=== PATIENT | female | born 1935 | race Caucasian/White ===

== ENCOUNTER 2020-07-16 17:13 | Emergency (ER) | payer MEDICARE, SELFPAY ==
--- NOTE | ~2020-07-16 | XR_ITS ---
EXAMINATION: XR chest 2V DATE: 07/16/2020 17:51 INDICATION: Left chest pain. TECHNIQUE: Frontal and lateral views of the chest were obtained. COMPARISON: Chest single view 09/03/2009 FINDINGS: There is a large hiatal hernia. There are airspace opacities in the lower lung zones. There is a small right pleural effusion. No pneumothorax. The heart size is normal. IMPRESSION: 1. Airspace opacities in the lower lung zones, consistent with atelectasis versus pneumonia. 2. Small right pleural effusion. 3. Large hiatal hernia. Reviewed, dictated and finalized at location A. [employer] IMPRESSION: 1. Airspace opacities in the lower lung zones, consistent with atelectasis vers us pneumonia. 2. Small right pleural effusion. 3. Large hiatal hernia.
--- NOTE | ~2020-07-16 | XR_ITS ---
EXAMINATION: XR abdomen NG/feed tube insert DATE: 07/16/2020 21:32 INDICATION: Nasogastric tube placement. TECHNIQUE: An upright view of the abdomen was obtained. COMPARISON: Chest CT 07/16/2020 FINDINGS: The lower abdomen is excluded. There are no dilated loops of small or large bowel. The naso gastric tube is coiled in the hiatal hernia above the diaphragm. IMPRESSION: 1. Nasogastric tube coiled in the hiatal hernia above the diaphragm. Given the obstructed paraesophag eal hiatal hernia seen by CT, this is likely ideal positioning. Reviewed, dictated and finalized at location A. R MANAGER IMPRESSION: 1. Nasogastric tube coiled in the hiatal hernia above the diaphragm. Given the obstructed paraesophageal hiatal hernia seen by CT, this is likely ideal positi oning.
--- NOTE | ~2020-07-16 | CT_ITS ---
EXAMINATION: CTA chest PE protocol DATE: 07/16/2020 19:09 INDICATION: Shortness of breath. TECHNIQUE: Computed tomography angiography (CTA) of the chest was performed with 100 mL Omnipaque-350 intravenous contrast timed to evaluate the pulmonary arteries. Coronal maximum intensity projection 3D-reconstructions were created by the technologist. Automated exposure control and iterative reconst ruction technique were employed. The dose-length product was 357.59 mGy-cm. COMPARISON: Chest 2 views 07/16/2020 FINDINGS: The lungs demonstrate mild atelectasis. No pleural effusion. The heart size is normal. No p ericardial effusion. There is a large hiatal hernia. The fundus is below the diaphragm and distended by food. The portion of the stomach above the diaphragm is also distended. The esophagus is fluid-tal led and distended. The distal stomach is compressed at the hiatus by the distended portion of the sto mach. The intra-abdominal distal stomach is decompressed. There is an 8.2 cm cyst in right kidney. Th ere are diverticula of the proximal duodenum. There are cysts in the liver measuring up to 2.1 cm. Th ere is no pulmonary embolus. There is mild thoracic spondylosis and severe lumbar spondylosis. IMPRESSION: 1. No pulmonary embolus. 2. Obstructed paraesophageal hiatal hernia. Reviewed, dictated and finalized at location A. INTMENT MANAGER
[2020-07-16 17:11] VITALS: BP 198/85; PULSE 81; RESP 21; TEMP 36.4; O2SAT 97
[2020-07-16 17:15] VITALS: PULSE 91; O2SAT 100
--- NOTE | 2020-07-16 17:18 | ECG_ITS ---
Measurements Intervals [place] Rate: 75 P: 47 NM: 177 QRS: -25 QRSD: 81 T: 20 QT: 383 QTc: 429 Interpretive Statements SINUS RHYTHM WITH SINUS ARRHYTHMIA POSSIBLE LEFT ATRIAL ENLARGEMENT BASELINE ARTIFACT- I, II, AVR, AVL, AVF, V6 BORDERLINE ECG Electronically Signed On 07-16-2020 19:35:16 FORMAL SERVICE WAITER by Justo Tyler D.O.
[2020-07-16 17:19] VITALS: BP 193/87; PULSE 86; RESP 24; O2SAT 100
--- NOTE | 2020-07-16 17:35 | ED.CHESTPAIN ---
HPI - Chest Pain General Chief Complaint: Chest Pain Stated Complaint: left chest pain Time Seen by Provider: 07/16/20 17:26 Source: patient Mode of arrival: ambulatory Limitations: no limitations History of Present Illness HPI narrative: Patient is an 85-year-old female complaining of chest pain, midsternal, substernal, pressure, 8 out of 10, radiating to her left upper extremity and neck, accompanied by shortness of breath, nausea and vomiting that started this afternoon. Patient denies any abdominal pain, diaphoresis or fever. Related Data Home Medications Medication Instructions Recorded Confirmed aspirin 81 mg tablet,delayed 81 mg PO DAILY 09/12/19 02/06/20 release nitroglycerin 0.4 mg sublingual 0.4 mg SUBLINGUAL Q5M PRN 09/12/19 02/06/20 tablet Allergies Allergy/AdvReac Type Severity Reaction Status Date / Time bacitracin Allergy Intermediate RASH, Verified 07/16/20 17:17 BLISTERS neomycin Allergy Intermediate RASH, Verified 07/16/20 17:17 BLISTERS polymyxin B Allergy Intermediate RASH, Verified 07/16/20 17:17 BLISTERS Penicillins Allergy Unknown Skin Verified 07/16/20 17:17 Reaction Review of Systems Review of Systems: All systems reviewed & are unremarkable except as noted in HPI and below Constitutional: Constitutional: Denies body ache(s), Denies chills, Denies excessive sweating, Denies fatigue, Denies fever(s), Denies headache(s), Denies lethargy, Denies malaise, Denies weakness and Denies weight loss Eyes: Eyes: Denies blurry vision, Denies change in vision and Denies loss of vision ENT: Denies dizziness, Denies ear discharge, Denies headache(s), Denies lip swelling, Denies epistaxis, Denies nasal congestion, Denies neck pain, Denies throat swelling and Denies tongue swelling Cardiovascular: Cardiovascular: Denies diaphoresis, Denies rapid heart rate, Denies edema, Denies irregular heart rhythm, Denies lightheadedness and Denies palpitations Respiratory: Respiratory: Denies chest congestion, Denies cough and Denies hemoptysis Gastrointestinal: Gastrointestinal: Denies abdominal pain, Denies melena, Denies hematochezia, Denies diarrhea, Denies nausea, Denies vomiting and Denies hematemesis Musculoskeletal: Musculoskeletal: Denies abnormal gait, Denies deformity, Denies joint swelling, Denies limited range of motion, Denies neck pain and Denies numbness Neurologic: Denies Abnormal speech present, Denies abnormal gait, Denies confusion, Denies dizziness, Denies headache(s), Denies focal weakness, Denies loss of vision, Denies numbness, Denies Other visual disturbances, Denies Sensory deficit (Neuro) and Denies weakness Psychiatric: Psychiatric: Denies confusion, Denies depression, Denies auditory hallucinations, Denies homicidal ideation and Denies suicidal ideation Endocrine: Endocrine: Denies cold intolerance, Denies excessive sweating, Denies fatigue, Denies heat intolerance and Denies palpitations Hematologic/Lymphatic: Hematologic/Lymphatic: Denies easy bleeding and Denies easy bruising Allergic/Immunologic: Allergic/Immunologic: Denies lip swelling, Denies throat swelling and Denies tongue swelling [facility] Past Medical History Medical History (Updated 07/16/20 @ 20:38 by Leandro Mccoy MD) Cataract Left 02-16-2020 Right 03-04-2020 Skin cancer Family History Family History Sibling Diabetes mellitus Hypertension Family history of lung cancer Family history of cardiovascular disease Family history of malignant neoplasm of breast in first degree relative Family history of atrial fibrillation Father Diabetes mellitus Hypertension Family history of lung cancer Family history of atrial fibrillation Mother Hypertension Family history of elevated blood lipids Family history of cardiovascular disease Social History Social History Smoking stat
[2020-07-16 17:46] LABS: Basophils Percent Auto 0.7 % (0.2-1.2); Eosinophils Absolute Auto 0.1 K/mm3 (0-0.3); Eosinophils Percent Auto 1.3 % (0-4.4); Hematocrit 43.1 % (37.0-47.0); Hemoglobin 14.5 g/dL (12.0-15.0); Immature Granulocyte Absolute 0.01 K/mm3 (0.00-0.031); Immature Granulocyte Percent A 0.2 % (0-0.5); Lymphocytes Absolute Auto 1.73 K/mm3 (0.9-3.2); Lymphocytes Percent Auto 31.3 % (18.3-44.2); Mean Corpuscular HGB Conc 33.6 g/dl (32-36); Mean Corpuscular Hemoglobin 32.2 pg (26-34); Mean Corpuscular Volume 95.8 fl (80-100); Mean Platelet Volume 10.5 fl (7.4-10.4); Monocytes Absolute Auto 0.5 K/mm3 (0.1-0.6); Monocytes Percent Auto 8.2 % (2.6-8.5); Neutrophils Absolute Auto 3.2 K/mm3 (1.3-6.7); Neutrophils Percent Auto 58.3 % (45.5-73.1); Platelet Count Result 189 k/mm3 (150-375); Red Cell Distribution Width 12.2 % (11.5-14.5); White Blood Count 5.5 K/mm3 (4.5-10.0)
[2020-07-16 17:56] VITALS: BP 200/92; PULSE 84; RESP 22; O2SAT 99
[2020-07-16] MEDS: NITROGLYCERIN SL 0.4 MG TABLET SUBLINGUAL (17:56)
[2020-07-16] MEDS: LACTATED RINGERS 1,000 ML 250 ML IV CONT (17:56)
[2020-07-16] MEDS: ONDANSETRON INJ 4 MG/2 ML VIAL IV PUSH (17:56)
[2020-07-16 17:58] LABS: Anion Gap 14 mmol/L (8-16); Blood Urea Nitrogen 19 mg/dL (7-17); Calcium 10.6 mg/dL (8.4-10.2); Carbon Dioxide 24 mmol/L (22-30); Chloride 103 mmol/L (98-107); Estimated Glomerular Filt Rate 53; Glucose 123 mg/dL (65-105); Potassium 3.5 mmol/L (3.4-5.0); Sodium 141 mmol/L (137-145)
[2020-07-16 18:10] LABS: Troponin I < 0.012 ng/mL (0.000-0.034)
[2020-07-16 18:22] LABS: Prothrombin Time 13.7 Seconds (11.1-14.7)
[2020-07-16 18:23] LABS: Partial Thromboplastin Time 29.8 SECONDS (22.3-36.8)
[2020-07-16 18:25] LABS: D Dimer 2.93 ug/mL (<0.48)
[2020-07-16] MEDS: MORPHINE SULFATE (*CRX) 2 MG/ML INJ IV PUSH (19:00)
[2020-07-16 20:57] LABS: Troponin I < 0.012 ng/mL (0.000-0.034)
[2020-07-16 21:01] VITALS: BP 182/82; PULSE 91; RESP 16; O2SAT 98
[2020-07-16 22:57] VITALS: BP 148/53; PULSE 87; RESP 16; O2SAT 94
--- NOTE | 2020-07-16 22:57 | PC.NURSE ---
Spoke with [facility]. Pt accepted to [id number]
--- NOTE | 2020-07-16 23:05 | PC.NURSE ---
called [facility] to request transport. ETA 45 minute.
[2020-07-17 00:07] VITALS: BP 146/54; PULSE 92; RESP 17; TEMP 36.7; O2SAT 94
== END 2020-07-17 00:11 | disposition short-term general hospital (02) ==
PROVIDERS: Emergency Medicine; Emergency Provider Emergency Medicine; PCP Family Medicine
DX: K44.0 Diaphragmatic hernia with obstruction, without gangrene (principal); Z79.82 Long term (current) use of aspirin; Z98.42 Cataract extraction status, left eye; Z98.41 Cataract extraction status, right eye; Z85.828 Personal history of other malignant neoplasm of skin; R94.31 Abnormal electrocardiogram [ECG] [EKG]
CPT/HCPCS: 36415; 71046; 71275; 80048; 84484; 85025; 85380; 85610; 85730; 93005; 96361; 96365; 96366; 96375; 99285; A9270; J1956; J2270; J2405; J7120; Q9967

== ENCOUNTER 2020-09-17 09:36 | Outpatient (NON) | payer MEDICARE, SELFPAY ==
[2020-09-17 23:29] LABS: SARS-CoV-2 RNA PCR Positive
== END 2020-09-17 09:37 ==
LOC: ANHCOVIDDT 09:37
PROVIDERS: PCP Family Medicine; Visit Provider Family Medicine
DX: U07.1 COVID-19 (principal)
CPT/HCPCS: C9803; U0003

== ENCOUNTER 2020-12-31 13:12 | Observation (INO) | payer MEDICARE, SELFPAY ==
[2020-12-31] VITALS (17 sets, daily range): BP systolic 139–200; BP diastolic 65–107; PULSE 43–86; RESP 12–20; TEMP 36.4–36.7; O2SAT 96–100
--- NOTE | ~2020-12-31 | US_ITS ---
EXAMINATION: US carotid duplex BI DATE: 01/01/2021 10:04 INDICATION: Syncope. TECHNIQUE: Grayscale, color Doppler, and pulsed Doppler images of the cervical carotid arteries were obtained. The degree of vessel stenosis is placed in one of the following categories: normal, <50%, 5 0-69%, >=70% but less than near-occlusion, near-occlusion, or total occlusion. Note that percent sten osis relative to normal distal artery lumen diameter is indirectly measured from velocity measurement s as described by Adam, et al. Radiology 2003; [id number]. COMPARISON: None. FINDINGS: There is an arrhythmia. RIGHT: The right common carotid artery (CCA) peak systolic velocity (PSV) is 87 cm/s. The right internal car otid artery (ICA) PSV is 106 cm/s. The right ICA end-diastolic velocity (EDV) is 22 cm/s. The right I CA/CCA PSV ratio is 1.2. Grayscale and color Doppler images yield an estimate of <50% diameter reduct ion from plaque in the ICA. There is antegrade flow in the right vertebral artery. LEFT: The left CCA PSV is 86 cm/s. The left ICA PSV is 102 cm/s. The left ICA EDV is 19 cm/s. The left ICA/ CCA PSV ratio is 1.2. Grayscale and color Doppler images yield an estimate of <50% diameter reduction from plaque in the ICA. There is antegrade flow in the left vertebral artery. IMPRESSION: 1. <50% stenosis in the right internal carotid artery. 2. <50% stenosis in the left internal carotid artery. 3. Arrhythmia. Reviewed, dictated and finalized at location A.
--- NOTE | 2020-12-31 13:42 | ECG_ITS ---
Measurements Intervals [place] Rate: 51 P: 26 DC: 175 QRS: -6 QRSD: 76 T: 37 QT: 420 QTc: 390 Interpretive Statements SINUS BRADYCARDIA WITH SINUS ARRHYTHMIA LOW QRS VOLTAGE IN PRECORDIAL LEADS VOLTAGE CRITERIA FOR LVH BORDERLINE ECG Electronically Signed On 12-31-2020 14:10:49 CDT by Justo Tyler D.O.
--- NOTE | 2020-12-31 14:04 | ED.SYNCOPE ---
HPI - Syncope General Chief Complaint: Syncope Stated Complaint: syncope today, cp last week Time Seen by Provider: 12/31/20 14:04 History of Present Illness HPI narrative: 85 yo female w/ h/o atrial fibrillation presents to the ED for syncope. She reports that she was sitting on the couch when she became nauseated and fell to the side. She is unsure if she ever fully lost consciousness. SHe had a similar, but briefer episode on Sunday. The day before she was having chest pain. That resolved and has not returned. SHe has currently retuned to baseline and denies any additional symptoms. She has atrial fibrillation and hypertension. She was recently started on eliquis, but stopped after having a nosebleed. She is prescribed lisinopril and metoprolol for her blood pressure. She has not been taking the lisinopril, because she did not feel that she needed it. Related Data Home Medications Medication Instructions Recorded Confirmed aspirin 81 mg tablet,delayed 81 mg PO DAILY 09/12/19 12/31/20 release nitroglycerin 0.4 mg sublingual 0.4 mg SUBLINGUAL Q5M PRN 09/12/19 12/31/20 tablet ascorbic acid (vitamin C) 1,000 mg 1 g PO DAILY 11/12/20 12/31/20 tablet cholecalciferol (vitamin D3) 25 25 mcg PO DAILY 11/12/20 12/31/20 mcg (1,000 unit) tablet lisinopril 10 mg tablet 10 mg PO DAILY 11/16/20 12/31/20 simvastatin 10 mg PO DAILY 12/31/20 12/31/20 Allergies Allergy/AdvReac Type Severity Reaction Status Date / Time bacitracin Allergy Intermediate RASH, Verified 11/16/20 14:22 BLISTERS neomycin Allergy Intermediate RASH, Verified 11/16/20 14:22 BLISTERS polymyxin B Allergy Intermediate RASH, Verified 11/16/20 14:22 BLISTERS Penicillins Allergy Unknown Skin Verified 11/16/20 14:22 Reaction Review of Systems Review of Systems: All systems reviewed & are unremarkable except as noted in HPI and below Constitutional: Constitutional: Denies chills, Denies fever(s) and Denies weakness Eyes: Eyes: Reports no additional eye complaints ENT: Reports system reviewed and no additional complaints, except as documented Cardiovascular: Cardiovascular: Reports as per HPI Respiratory: Respiratory: Denies dyspnea Gastrointestinal: Gastrointestinal: Denies abdominal pain, Denies nausea and Denies vomiting Genitourinary: Genitourinary: Reports no additional female genitourinary complaints Musculoskeletal: Musculoskeletal: Reports no additional musculoskeletal complaints Neurologic: Denies confusion, Reports syncope and Denies headache(s) [facility] Past Medical History Medical History Atrial fibrillation Paroxysmal Cataract Left 02-16-2020 Right 03-04-2020 Chronic GERD COVID-19 Essential (primary) hypertension Mixed hyperlipidemia Skin cancer Surgical History Surgical History History of excision of lesion Mohs procedure History of Zaki fundoplication History of repair of hiatal hernia (08/06/20) Family History Family History Sibling Diabetes mellitus Hypertension Family history of lung cancer Family history of cardiovascular disease Family history of malignant neoplasm of breast in first degree relative Family history of atrial fibrillation Father Diabetes mellitus Hypertension Family history of lung cancer Family history of atrial fibrillation Mother Hypertension Family history of elevated blood lipids Family history of cardiovascular disease Social History Social History Social History: The patient has 1 daughter who is the durable power assistant prosecuting attorney for healthcare. The patient desires to be a full code but does not want to live in a vegetative state. The patient is . 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
[2020-12-31 14:05] LABS: Basophils Percent Auto 0.8 % (0.2-1.2); Eosinophils Absolute Auto 0.3 K/mm3 (0-0.3); Eosinophils Percent Auto 5.2 % (0-4.4); Hematocrit 40.9 % (37.0-47.0); Hemoglobin 13.4 g/dL (12.0-15.0); Lymphocytes Absolute Auto 1.76 K/mm3 (0.9-3.2); Lymphocytes Percent Auto 36.7 % (18.3-44.2); Mean Corpuscular HGB Conc 32.8 g/dl (32-36); Mean Corpuscular Hemoglobin 31.9 pg (26-34); Mean Corpuscular Volume 97.4 fl (80-100); Mean Platelet Volume 9.7 fl (7.4-10.4); Monocytes Absolute Auto 0.5 K/mm3 (0.1-0.6); Monocytes Percent Auto 9.8 % (2.6-8.5); Neutrophils Absolute Auto 2.3 K/mm3 (1.3-6.7); Neutrophils Percent Auto 47.5 % (45.5-73.1); Platelet Count Result 193 k/mm3 (150-375); Red Cell Distribution Width 13.4 % (11.5-14.5); White Blood Count 4.8 K/mm3 (4.5-10.0)
[2020-12-31 14:14] LABS: Anion Gap 6 mmol/L (8-16); Blood Urea Nitrogen 13 mg/dL (7-17); Calcium 9.2 mg/dL (8.4-10.2); Carbon Dioxide 27 mmol/L (22-30); Chloride 109 mmol/L (98-107); Estimated CRCL calculation 35 ml/min; Estimated Glomerular Filt Rate 60; Glucose 83 mg/dL (65-105); Potassium 4.7 mmol/L (3.4-5.0); Sodium 142 mmol/L (137-145)
[2020-12-31] MEDS: hydrALAZINE HCL 20 MG/ML VIAL 10 MG IV PUSH (14:34)
[2020-12-31] MEDS: SODIUM CHLORIDE 0.9% IV 500 ML 999 ML IV CONT (14:34)
[2020-12-31 15:01] LABS: Alanine Aminotransferase 27 U/L (4-35); Albumin Level 3.9 g/dL (3.5-5.1); Alkaline Phosphatase 55 U/L (38-126); Aspartate Amino Transferase 36 U/L (14-36); Bilirubin,Total 0.2 mg/dL (0.2-1.3)
--- NOTE | 2020-12-31 15:03 | PC.NURSE ---
Pt c/o sob after up to use the restroom. SPO2 100% on room air on arrival to room. Pt is tearful and appears to be having panic attack.
[2020-12-31 15:13] LABS: Troponin I < 0.012 ng/mL (0.000-0.034)
[2020-12-31 15:27] LABS: Add Urine Microscopic? YES; Appearance Urine Clear (Clear); Bacteria Urine Trace /hpf; Bilirubin Urine Negative (Negative); Blood Urine Negative (Negative); Color Urine Colorless (Yellow); Glucose Urine UA Negative (Negative); Ketones Urine Negative (Negative); Leukocyte Esterase Ur 1+ LEU/UL (Negative); Nitrate Urine Negative (Negative); Protein Urine Negative (Negative); RBC Urine 0-2 /hpf (0-2); Squamous Epithelial Cell Urine Few /hpf (Few); Transitional Epi Cells Urine Rare /hpf (None Seen); Urobilinogen Urine Negative mg/dL (<2.0)
[2020-12-31 15:29] LABS: Specific Grav Ur 1.003 (1.001-1.035)
[2020-12-31] MEDS: ACETAMINOPHEN 500 MG TABLET 1000 MG PO (17:40)
--- NOTE | 2020-12-31 18:16 | ADMGEN ---
This patient, Twyla Warren, was admitted to IMU Room 231-01 @1815. Patient/family oriented to hospital policies and general routines including ID bracelet, bed and alarms, visiting hours, pain management, procedures, bathroom and other care routines, personal items, smoking policy, room service/diet, and visiting hours. Information on how to activate the Rapid Response Team has been discussed. Patient/Family are encouraged to report perceived risks to care and to ask questions if they do not understand what they are told or what they should do.
--- NOTE | 2020-12-31 21:47 | PM.IMHP ---
H&P: HPI History of Present Illness Date/Time: 12/31/20 21:47 patient who has a past medical history a paroxysmal atrial fibrillation. The patient stated that she has seen Dr. Ramos in the past for manager animal. She said that she believes she was on Eliquis and only took 2 or 3 doses when she developed a nose bleed. She spoke with her manager animal who told her to just continue with her vitamin E and her aspirin. Appears that everybody in her family has hypertension and atrial fibrillation. The patient has been on metoprolol for the atrial fibrillation and only take lisinopril when her blood pressure is elevated. She does not take lisinopril every day. She stated on the 24 of December she was up during the night having chest pain. She said she also has acid reflux and sleeps with her head up. She states that she tries not to eat later than 6:00 a.m. at night. However her chest pain has been occurring during the night. Wakes up during the night. Last time she had chest pain was about a week ago and she was having difficulty sleeping so she took 2 Tylenol and she had some Tums she said she slept very little that night. But it took about 2 or 3 hours to relieve her discomfort. The patient stated that she recently had an echo and that occasionally she feels some fluttering. The patient stated that she used to run marathons up to about 6 years ago. The patient came to the emergency room [facility] because of a syncopal episode. She stated that last Sunday she had a syncopal episode where she was in the kitchen and she felt dizzy after changing out the trash bags to take the trash out. She said she was bending over and then standing up and she felt dizzy and she grabbed on to handle in the kitchen and slid herself down to the floor and a rug. She said she probably laid on the rug for about 30 minutes before getting up. She did feel some dizziness at that time. Today she woke up and she felt fine and heard a pounding in her left ear like whistling sound and she became dizzy. She said she sat on the couch and she felt like the whole room was spinning. So she told her daughter to bring her to the hospital. The patient had tested positive for COVID several months ago. She did have any chest pain today but said she felt some fluttering. The patient does live home alone. She said she recently had a Holter monitor on as well. She believes it was early this month. Her dizziness in the past and helped a lot. According to her office visit on 11/16/2020. The patient has been getting it dizzy a few times a month. I found the report from a 14 day Holter monitor it was listed as 11/22/2020. She has prior dominantly in sinus rhythm with an average heart rate of 62 beats per minute. Minimum of 49 beats per minute maximum of 153 beats per minute in conjunction with atrial fibrillation with rapid ventricular response. She has a few rare PVCs. It was noted that the patient's symptoms of chest pain corresponds with atrial fibrillation with rapid ventricular response. Last month shows pseudonormal diastolic dysfunction grade 2 with the EF of 70%. Sinus arrhythmia heart rate was in the 50s. As I was speaking to her heart rate was in the 70s. But did not lose consciousness.Hydralazine in the emergency room as well as IV fluids. She was also given Tylenol for her headache. The patient stated that she felt short of breath after getting some IV fluids so they were discontinued. On the date of service of 12/31/2020 Chief Complaint: Syncopal episode Review of Systems Review of Systems: All systems reviewed & are unremarkable except as noted in HPI and below Constitutional: Constitutional: Reports as per HPI and Reports no additional constitutional complaints Eyes: Eyes: Reports as per HPI and Reports no additional eye complaints ENT: Reports system reviewed and no additional complaints, except as documented and Reports Normal hearing present Cardiovascular: Cardiovascu
[2020-12-31] MEDS: METOPROLOL TARTRATE 25 MG TABLET PO (22:56)
[2020-12-31] MEDS: FAMOTIDINE 20 MG/2 ML VIAL IV PUSH (23:17)
[2020-12-31 23:52] LABS: Troponin I < 0.012 ng/mL (0.000-0.034)
[2021-01-01] VITALS (12 sets, daily range): BP systolic 125–157; BP diastolic 59–88; PULSE 54–94; RESP 12–16; TEMP 36.1–36.6; O2SAT 97–100
[2021-01-01] MEDS: ACETAMINOPHEN 500 MG TABLET 1000 MG PO ×2 (04:12→11:26)
[2021-01-01 04:53] LABS: Basophils Absolute Auto 0.1 K/mm3 (0.0-0.1); Basophils Percent Auto 1.1 % (0.2-1.2); Eosinophils Absolute Auto 0.2 K/mm3 (0-0.3); Eosinophils Percent Auto 4.4 % (0-4.4); Hematocrit 38.9 % (37.0-47.0); Hemoglobin 13.1 g/dL (12.0-15.0); Lymphocytes Absolute Auto 2.07 K/mm3 (0.9-3.2); Lymphocytes Percent Auto 43.9 % (18.3-44.2); Mean Corpuscular HGB Conc 33.7 g/dl (32-36); Mean Corpuscular Hemoglobin 31.3 pg (26-34); Mean Corpuscular Volume 93.1 fl (80-100); Monocytes Absolute Auto 0.5 K/mm3 (0.1-0.6); Monocytes Percent Auto 9.5 % (2.6-8.5); Neutrophils Absolute Auto 1.9 K/mm3 (1.3-6.7); Neutrophils Percent Auto 41.1 % (45.5-73.1); Platelet Count Result 193 k/mm3 (150-375); Red Blood Count 4.18 M/mm3 (4.2-5.4); Red Cell Distribution Width 13.6 % (11.5-14.5); White Blood Count 4.7 K/mm3 (4.5-10.0)
[2021-01-01 05:06] LABS: Alanine Aminotransferase 22 U/L (4-35); Albumin Level 3.5 g/dL (3.5-5.1); Alkaline Phosphatase 55 U/L (38-126); Anion Gap 6 mmol/L (8-16); Aspartate Amino Transferase 33 U/L (14-36); Bilirubin,Total 0.2 mg/dL (0.2-1.3); Blood Urea Nitrogen 12 mg/dL (7-17); Calcium 8.9 mg/dL (8.4-10.2); Carbon Dioxide 24 mmol/L (22-30); Chloride 113 mmol/L (98-107); Estimated CRCL calculation 35 ml/min; Estimated Glomerular Filt Rate 60; Glucose 92 mg/dL (65-105); Magnesium 2.3 mg/dL (1.6-2.3); Potassium 4.2 mmol/L (3.4-5.0); Sodium 143 mmol/L (137-145)
[2021-01-01 07:08] LABS: Free T4 Free Thyroxine Reflex 1.03 ng/dL (0.78-2.19)
[2021-01-01] MEDS: ASCORBIC ACID 500 MG TABLET 1000 MG PO (08:15)
[2021-01-01] MEDS: CHOLECALCIFEROL 1,000 UNITS TABLET 1000 UNITS PO (08:15)
[2021-01-01] MEDS: SIMVASTATIN 10 MG TABLET PO (08:15)
[2021-01-01] MEDS: ASPIRIN 81 MG ENTERIC TABLET PO (08:15)
[2021-01-01] MEDS: METOPROLOL TARTRATE 25 MG TABLET PO (08:16)
[2021-01-01] MEDS: MECLIZINE HCL 25 MG TABLET PO (08:16)
[2021-01-01] MEDS: FAMOTIDINE 20 MG/2 ML VIAL IV PUSH (08:16)
[2021-01-01 10:08] LABS: Total Triiodothyronine (T3) 1.07 NG/ML (0.97-1.69)
--- NOTE | 2021-01-01 10:56 | PM.CNCAR ---
Assessment and Plan Assessment and plan (1) Syncopal episodes: Code(s): R55 - Syncope and collapse Status: Acute Assessment and Plan: I am not sure if she actually had a true syncopal episode at all. The 1st episode when she laid on the floor was presyncope. The episode yesterday is also uncertain. It sounds as if she had vertigo. Certainly her markedly elevated blood pressure at the time may have been a contributing factor as well. potline monitor while in hospital is unremarkable. (2) Dizziness: Code(s): R42 - Dizziness and giddiness Status: Acute Assessment and Plan: ? Blood pressure related. Unlikely related to bradycardia (3) Essential (primary) hypertension: Code(s): I10 - Essential (primary) hypertension Status: Chronic Assessment and Plan: Above goal. Will schedule her lisinopril 10 mg daily. Continue metoprolol 25 mg p.o. b.i.d.. Continue aspirin. (4) Chest pain: Code(s): R07.9 - Chest pain, unspecified Status: Acute Assessment and Plan: Atypical. Recommend outpatient Lexiscan myocardial perfusion study (5) Atrial fibrillation: Code(s): I48.91 - Unspecified atrial fibrillation Status: Chronic Assessment and Plan: Anticoagulation is recommended but she is not interested at this point. Continue aspirin. Continue metoprolol at current dose. Probably stable for discharge later on this afternoon or at latest tomorrow History of Present Illness History of Present Illness Consult date/time: 01/01/21 10:56 Requesting physician: Adam Gerber MD Consult reason: Other (Syncope) Reason For Visit: syncope,bradycardia,atrial fibrillation Narrative: Date of service 01/01/2021 History: Patient is an 85-year-old female who has a history of paroxysmal atrial fibrillation. She sees Dr. Sanchez as an outpatient and recently saw him within the past couple of weeks. She has a history of atrial fibrillation dating back to a hernia repair in in July 2020. On day 2 postoperatively she went in atrial fibrillation. She was started on metoprolol and converted to sinus rhythm. She did not feel palpitations at that time. She was briefly started on Eliquis but due to nose bleeds [place] with medications. She does not want blood thinners at this point. She did wear an outpatient monitor which showed 6% atrial fibrillation burden. Average heart rate was 62 beats per minute during that monitor. Echocardiogram recently showed normal ejection fraction with mild LVH moderate pulmonary hypertension and moderate to severe tricuspid regurgitation. She came to the hospital because of a ?syncopal episode?. In fact though I am uncertain if she actually ever truly did pass out. Patient states that she was sitting and it felt as if her head was spinning. She leaned over to the side and then if she did pass out it was very brief at that point. She had another episode about a week ago in which she was standing and taking out the trash and felt dizzy and laid down on the floor. That episode passed over about 30 minutes. She states these 2 episodes are different from 1 another. She also has had a couple of episodes of chest pain over the past several weeks to a month. On the last Sunday she had 3-4 hours of chest pain. She took Tums and her symptoms gradually subsided. She also had some chest pressure since then the last about an hour that was very mild. The chest symptoms did not radiate into the arm back neck or jaw nor associate with nausea, diaphoresis or SOB. She otherwise denies any paroxysmal nocturnal dyspnea, orthopnea, previous history of syncope, palpitations or edema. It should be noted that her blood pressure presentation was over 200 systolic. Review of Systems Review of Systems: All systems reviewed & are unremarkable except as noted in HPI and below Constitutional: Constitutional: Denies weakness Eyes: Eyes: Denies b
[2021-01-01] MEDS: lisinopriL 10 MG TABLET PO (11:25)
--- NOTE | 2021-01-01 16:31 | PM.DS ---
DS: Admitting Diagnosis Admitting Diagnosis Admitting Diagnosis: Syncope and collapse dizziness Essential (primary) hypertension: Mixed hyperlipidemia: Chronic GERD: atrial fibrillation DS: Discharge Diagnosis Discharge Diagnosis (1) Syncopal episodes: Code(s): R55 - Syncope and collapse Status: Acute (2) Dizziness: Code(s): R42 - Dizziness and giddiness Status: Acute (3) Essential (primary) hypertension: Code(s): I10 - Essential (primary) hypertension Status: Chronic (4) Atrial fibrillation: Code(s): I48.91 - Unspecified atrial fibrillation Status: Chronic (5) Hearing loss in left ear: Code(s): H91.92 - Unspecified hearing loss, left ear Status: Acute (6) Chronic GERD: Code(s): K21.9 - Gastro-esophageal reflux disease without esophagitis Status: Chronic (7) Mixed hyperlipidemia: Code(s): E78.2 - Mixed hyperlipidemia Status: Chronic DS: Summary Hospital Course Reason for hospitalization: syncope Hospital Course: 85-year-old female admitted after reporting 2 episodes of near-syncope and syncope. Cardiology was consulted and careful review of history with patient revealed she has been having functional decline and intermittent dizziness since left inner ear disturbance began 3 months ago. Pt recently wore Holter monitor in the outpt setting without abnormal findings. Syncope considered unlikely by history.She is discharged home in stable condition after 24 hour monitoring with indication to follow-up with ENT. Dr. Gr's information was given to patient at the time of discharge. Additionally, she was advised to follow-up with her primary care physician for ongoing care of her blood pressure. Status at Discharge Functional status at discharge: uses cane/walker Overall status at discharge: patient is back to baseline Time Spent with Patient Time attestation: Total time spent providing and/or coordinating discharge services: Time spent: Greater than 30 minutes Exam Narrative: Exam Narrative: GEN: NAD, AAOx3, cooperative HEENT: NCAT, MMM, EOMI, reduced audition in L ear Neck: no JVD Heart: IRR Lungs: CTA B/l Abd: soft, NT, ND, bowel sounds normoactive Ext: moves all, no cyanosis, no clubbing, no edema DS: Data Data Completed and Pending Labs on day of discharge: Labs from last 24 hours 01/01/21 01/01/21 01/01/21 04:33 04:33 04:33 WBC RBC Hgb Hct MCV MCH MCHC RDW Plt Count MPV Immature Gran % (Auto) Neut % (Auto) Lymph % (Auto) Pender % (Auto) Eos % (Auto) Baso % (Auto) Lymph # (Auto) Pender # (Auto) Eos # (Auto) Baso # (Auto) Abs Immat Gran (auto) Absolute Neuts (auto) Absolute Nucleated RBC Nucleated RBC % Sodium Potassium Chloride Carbon Dioxide Anion Gap BUN Creatinine Estim Creat Clear Calc Estimated GFR Glucose Calcium Magnesium Total Bilirubin AST ALT Alkaline Phosphatase Troponin I Total Protein Albumin TSH (Reflex) 4.920 H Free T4 1.03 Total T3 1.07 01/01/21 01/01/21 12/31/20 04:33 04:33 23:09 WBC 4.7 RBC 4.18 L Hgb 13.1 Hct 38.9 MCV 93.1 MCH 31.3 MCHC 33.7 RDW 13.6 Plt Count 193 MPV 10.0 Immature Gran % (Auto) 0.0 Neut % (Auto) 41.1 L Lymph % (Auto) 43.9 Pender % (Auto) 9.5 H Eos % (Auto) 4.4 Baso % (Auto) 1.1 Lymph # (Auto) 2.07 Pender # (Auto) 0.5 Eos # (Auto) 0.2 Baso # (Auto) 0.1 Abs Immat Gran (auto) 0.00 Absolute Neuts (auto) 1.9 Absolute Nucleated RBC 0.0 Nucleated RBC % 0.0 Sodium 143 Potassium 4.2 Chloride 113 H Carbon Dioxide 24 Anion Gap 6 L BUN 12 Creatinine 0.90 Estim Creat Clear Calc 35 Estimated GFR 60 Glucose 92 Calcium 8.9 Magnesium 2.3 Total Bilirubin 0.2 AST 33 ALT 22 Alkaline Phosphat
== END 2021-01-01 18:08 | disposition home or self-care (01) ==
LOC: ANHED 14:29 → ANHIMU 20:40
PROVIDERS: Emergency Medicine; Nurse Practitioner; Admitting Provider Family Medicine; Emergency Provider Emergency Medicine; PCP Family Medicine; Visit Provider Hospitalist
DX: R55 Syncope and collapse (principal); I10 Essential (primary) hypertension; R07.9 Chest pain, unspecified; I48.0 Paroxysmal atrial fibrillation; K21.9 Gastro-esophageal reflux disease without esophagitis; R06.02 Shortness of breath; I65.23 Occlusion and stenosis of bilateral carotid arteries; E78.2 Mixed hyperlipidemia; Z86.16 Personal history of COVID-19; Z79.82 Long term (current) use of aspirin; Z79.899 Other long term (current) drug therapy
CPT/HCPCS: 36415; 80048; 80053; 80076; 81001; 83735; 84439; 84443; 84480; 84484; 85025; 87086; 93005; 93880; 96374; 96375; 96376; 99285; A9270; G0378; J0360; J7040

== ENCOUNTER 2022-03-29 07:54 | Outpatient (CLI) | payer MEDICARE, SELFPAY ==
[2022-03-29 11:57] LABS: Hematocrit 43.9 % (37.0-47.0); Hemoglobin 13.7 g/dL (12.0-15.0); Mean Corpuscular HGB Conc 31.2 g/dl (32-36); Mean Corpuscular Hemoglobin 31.9 pg (26-34); Mean Corpuscular Volume 102.3 fl (80-100); Mean Platelet Volume 10.6 fl (7.4-10.4); Platelet Count Result 181 k/mm3 (150-375); Red Blood Count 4.29 M/mm3 (4.2-5.4); Red Cell Distribution Width 12.5 % (11.5-14.5); White Blood Count 4.9 K/mm3 (4.5-10.0)
[2022-03-29 12:07] LABS: Alanine Aminotransferase 33 U/L (6-35); Alkaline Phosphatase 53 U/L (38-126); Anion Gap 5 mmol/L (8-16); Aspartate Amino Transferase 54 U/L (14-36); Bilirubin,Total 0.4 mg/dL (0.2-1.3); Blood Urea Nitrogen 18 mg/dL (7-17); Calcium 9.4 mg/dL (8.4-10.2); Carbon Dioxide 28 mmol/L (22-30); Chloride 108 mmol/L (98-107); Cholesterol 188 mg/dL (0-200); Estimated Glomerular Filt Rate 53; Glucose 86 mg/dL (65-110); HDL Direct 53 mg/dL; Potassium 4.6 mmol/L (3.4-5.0); Sodium 141 mmol/L (137-145); Triglycerides 92 mg/dL (<150)
[2022-03-29 12:18] LABS: LDL Cholesterol Direct 91 mg/dL
[2022-03-29 12:29] LABS: Free T4 Free Thyroxine 1.11 ng/mL (0.78-2.19)
== END 2022-03-29 07:55 | disposition home or self-care (01) ==
LOC: ANHGOSHLAB 08:01
PROVIDERS: PCP Family Medicine; Visit Provider Family Medicine
DX: E78.2 Mixed hyperlipidemia (principal); R79.89 Other specified abnormal findings of blood chemistry; I10 Essential (primary) hypertension
CPT/HCPCS: 36415; 80053; 80061; 84439; 84443; 85027

== ENCOUNTER 2022-05-23 08:35 | Outpatient (CLI) | payer MEDICARE, SELFPAY ==
[2022-05-23 19:08] LABS: Alanine Aminotransferase 37 U/L (6-35); Albumin Level 4.3 g/dL (3.5-5.1); Alkaline Phosphatase 65 U/L (38-126); Aspartate Amino Transferase 55 U/L (14-36); Bilirubin,Total 0.5 mg/dL (0.2-1.3)
== END 2022-05-23 08:36 | disposition home or self-care (01) ==
LOC: ANHGOSHLAB 08:38
PROVIDERS: PCP Family Medicine; Visit Provider Physician Assistant
DX: R74.8 Abnormal levels of other serum enzymes (principal)
CPT/HCPCS: 36415; 80076

== ENCOUNTER 2022-05-24 09:39 | Outpatient (CLI) | payer MEDICARE, SELFPAY ==
[2022-05-24 19:45] LABS: Hepatitis B Surface Antigen Negative (Negative)
[2022-05-24 19:50] LABS: HAV RESULT Negative (Negative); Hepatitis B Core IgM Result Negative (Negative)
[2022-05-24 20:02] LABS: Hepatitis C Virus Antibody Negative (Negative)
== END 2022-05-24 09:40 | disposition home or self-care (01) ==
PROVIDERS: PCP Family Medicine; Visit Provider Physician Assistant
DX: R74.8 Abnormal levels of other serum enzymes (principal); R74.01 Elevation of levels of liver transaminase levels
CPT/HCPCS: 36415; 80074

== ENCOUNTER → 2022-05-25 08:01 | Outpatient (CLI) | payer MEDICARE, SELFPAY ==
--- NOTE | ~2022-05-25 | US_ITS ---
EXAMINATION: US abdomen limited DATE: 05/25/2022 08:32 INDICATION: Elevated liver enzymes TECHNIQUE: Multiple grayscale and Doppler ultrasound images of the abdomen were obtained. COMPARISON: None available FINDINGS: Bowel gas obscures visualization of the pancreas. The visualized portions of the pancreas a re unremarkable. Cysts of the liver measure up to 1.7 cm. The liver is otherwise normal with normal e chogenicity and echotexture. No surface nodularity. Normal hepatopetal flow in the main portal vein. The gallbladder is normal with no abnormal wall thickening, pericholecystic fluid or stones. The norm al common bile duct measures 6 mm. There was no sonographic Robbins sign. Incidental note is made of a 7.5 cm cyst of the right kidney. IMPRESSION: 1. No sonographic correlate for the patient's symptoms. Reviewed, dictated and finalized at location B.
== END ==
PROVIDERS: PCP Family Medicine; Visit Provider Family Medicine
DX: R74.8 Abnormal levels of other serum enzymes (principal)
CPT/HCPCS: 76705

== ENCOUNTER 2022-09-13 08:33 | Outpatient (CLI) | payer MEDICARE, SELFPAY ==
[2022-09-13 18:25] LABS: Alanine Aminotransferase 28 U/L (6-35); Albumin Level 4.2 g/dL (3.5-5.1); Alkaline Phosphatase 63 U/L (38-126); Aspartate Amino Transferase 45 U/L (14-36); Bilirubin,Total 0.7 mg/dL (0.2-1.3)
== END 2022-09-13 08:34 | disposition home or self-care (01) ==
LOC: ANHGOSHLAB 08:35
PROVIDERS: PCP Family Medicine; Visit Provider Physician Assistant
DX: R74.8 Abnormal levels of other serum enzymes (principal)
CPT/HCPCS: 36415; 80076

== ENCOUNTER 2023-01-18 08:32 | Outpatient (CLI) | payer MEDICARE, SELFPAY ==
[2023-01-18 19:28] LABS: Free T4 Free Thyroxine 1.15 ng/mL (0.78-2.19)
[2023-01-18 19:39] LABS: Alanine Aminotransferase 25 U/L (6-35); Alkaline Phosphatase 56 U/L (38-126); Anion Gap 5 mmol/L (8-16); Aspartate Amino Transferase 49 U/L (14-36); Bilirubin,Total 0.6 mg/dL (0.2-1.3); Blood Urea Nitrogen 19 mg/dL (7-17); Calcium 9.1 mg/dL (8.4-10.2); Carbon Dioxide 28 mmol/L (22-30); Chloride 105 mmol/L (98-107); Cholesterol 158 mg/dL (0-200); Estimated Glomerular Filt Rate > 60; Glucose 81 mg/dL (65-110); HDL Direct 45 mg/dL; Potassium 4.4 mmol/L (3.4-5.0); Sodium 138 mmol/L (137-145); Triglycerides 114 mg/dL (<150)
[2023-01-18 19:50] LABS: LDL Cholesterol Direct 79 mg/dL
== END 2023-01-18 08:33 | disposition home or self-care (01) ==
LOC: ANHGOSHLAB 08:33
PROVIDERS: PCP Family Medicine; Visit Provider Family Medicine
DX: E66.3 Overweight (principal); E78.2 Mixed hyperlipidemia; R79.89 Other specified abnormal findings of blood chemistry; I12.9 Hypertensive chronic kidney disease with stage 1 through stage 4 chronic kidney disease, or unspecified chronic kidney disease; N18.30 Chronic kidney disease, stage 3 unspecified
CPT/HCPCS: 36415; 80053; 80061; 84439; 84443

== ENCOUNTER 2023-02-14 08:49 | Outpatient (CLI) | payer MEDICARE, SELFPAY ==
[2023-02-14 21:41] LABS: Alanine Aminotransferase 28 U/L (6-35); Albumin Level 3.8 g/dL (3.5-5.1); Alkaline Phosphatase 50 U/L (38-126); Anion Gap 3 mmol/L (8-16); Aspartate Amino Transferase 46 U/L (14-36); Bilirubin,Total 0.4 mg/dL (0.2-1.3); Blood Urea Nitrogen 23 mg/dL (7-17); Carbon Dioxide 30 mmol/L (22-30); Chloride 106 mmol/L (98-107); Estimated Glomerular Filt Rate 60; Glucose 60 mg/dL (65-110); Potassium 4.4 mmol/L (3.4-5.0); Sodium 139 mmol/L (137-145)
== END 2023-02-14 08:50 | disposition home or self-care (01) ==
LOC: ANHGOSHLAB 08:51
PROVIDERS: PCP Family Medicine; Visit Provider Internal Medicine Cardiovascular Disease
DX: I49.3 Ventricular premature depolarization (principal)
CPT/HCPCS: 36415; 80053

== ENCOUNTER 2023-05-08 08:10 | Outpatient (CLI) | payer MEDICARE, SELFPAY ==
[2023-05-08 15:16] LABS: Hematocrit 44.6 % (37.0-47.0); Hemoglobin 14.3 g/dL (12.0-15.0); Mean Corpuscular HGB Conc 32.1 g/dl (32-36); Mean Corpuscular Hemoglobin 31.8 pg (26-34); Mean Corpuscular Volume 99.3 fl (80-100); Mean Platelet Volume 11.3 fl (7.4-10.4); Platelet Count Result 180 k/mm3 (150-375); Red Blood Count 4.49 M/mm3 (4.2-5.4); Red Cell Distribution Width 12.7 % (11.5-14.5); White Blood Count 5.2 K/mm3 (4.5-10.0)
[2023-05-08 15:53] LABS: Alanine Aminotransferase 34 U/L (6-35); Albumin Level 4.2 g/dL (3.5-5.1); Alkaline Phosphatase 55 U/L (38-126); Anion Gap 6 mmol/L (8-16); Aspartate Amino Transferase 53 U/L (14-36); Bilirubin,Total 0.7 mg/dL (0.2-1.3); Blood Urea Nitrogen 19 mg/dL (7-17); Calcium 9.4 mg/dL (8.4-10.2); Carbon Dioxide 27 mmol/L (22-30); Chloride 105 mmol/L (98-107); Cholesterol 180 mg/dL (0-200); Estimated Glomerular Filt Rate > 60; Glucose 83 mg/dL (65-110); HDL Direct 48 mg/dL; Potassium 4.6 mmol/L (3.4-5.0); Sodium 138 mmol/L (137-145); Triglycerides 124 mg/dL (<150)
[2023-05-08 16:10] LABS: LDL Cholesterol Direct 92 mg/dL
[2023-05-08 19:33] LABS: Free T4 Free Thyroxine 1.21 ng/mL (0.78-2.19)
[2023-05-11 10:41] LABS: Vitamin D 1,25 (OH)2 Total 25 pg/mL (18-72); Vitamin D2 1,25 (OH)2 <8 pg/mL; Vitamin D3 1,25 (OH)2 25 pg/mL
== END 2023-05-08 08:11 | disposition home or self-care (01) ==
PROVIDERS: PCP Family Medicine; Visit Provider Family Medicine
DX: E78.2 Mixed hyperlipidemia (principal); R79.89 Other specified abnormal findings of blood chemistry; E55.9 Vitamin D deficiency, unspecified; I12.9 Hypertensive chronic kidney disease with stage 1 through stage 4 chronic kidney disease, or unspecified chronic kidney disease; N18.30 Chronic kidney disease, stage 3 unspecified
CPT/HCPCS: 36415; 80053; 80061; 82652; 84439; 84443; 85027

== ENCOUNTER 2023-11-12 10:25 | Outpatient (CLI) | payer MEDICARE, SELFPAY ==
[2023-11-12 19:58] LABS: Vitamin D 25 Hydroxy 70.7 ng/mL
[2023-11-12 20:30] LABS: Alanine Aminotransferase 28 U/L (6-35); Alkaline Phosphatase 69 U/L (38-126); Anion Gap 5 mmol/L (8-16); Aspartate Amino Transferase 43 U/L (14-36); Bilirubin,Total 0.5 mg/dL (0.2-1.3); Blood Urea Nitrogen 16 mg/dL (7-17); Calcium 9.8 mg/dL (8.4-10.2); Carbon Dioxide 30 mmol/L (22-30); Chloride 105 mmol/L (98-107); Cholesterol 175 mg/dL (0-200); Estimated Glomerular Filt Rate 59; Glucose 81 mg/dL (65-110); HDL Direct 44 mg/dL; Potassium 4.2 mmol/L (3.4-5.0); Sodium 140 mmol/L (137-145); Triglycerides 197 mg/dL (<150)
[2023-11-12 20:41] LABS: LDL Cholesterol Direct 91 mg/dL
== END 2023-11-12 10:26 | disposition home or self-care (01) ==
LOC: ANHGOSHLAB 10:26
PROVIDERS: PCP Family Medicine; Visit Provider Nurse Practitioner
DX: E78.2 Mixed hyperlipidemia (principal); E55.9 Vitamin D deficiency, unspecified
CPT/HCPCS: 36415; 80053; 80061; 82306

== ENCOUNTER 2023-12-12 19:36 | Emergency (ER) | payer MEDICARE, SELFPAY ==
--- NOTE | ~2023-12-12 | XR_ITS ---
EXAMINATION: XR chest 1V DATE: 12/12/2023 22:04 INDICATION: Shortness of breath with cough, weakness and chills TECHNIQUE: frontal view of the chest was obtained. COMPARISON: None available for comparison FINDINGS: Mild opacities with bronchial wall thickening the right lower lung zone consistent with bronchitis an d/or pneumonia. Minimal linear discoid atelectasis at the left lung base. No edema, pleural effusion or pneumothorax. Heart size is normal. Tortuous thoracic aorta. Postoperative changes in the epigastr ic region. IMPRESSION: 1. Bronchial wall thickening and mild opacities in the right lower lung zone consistent with bronchit is and/or pneumonia. Reviewed, dictated and finalized at location A. IMPRESSION: 1. Bronchial wall thickening and mild opacities in the right lower lung zone co nsistent with bronchitis and/or pneumonia.
[2023-12-12 19:59] VITALS: BP 150/90; PULSE 67; RESP 15; TEMP 37.1; O2SAT 99
[2023-12-12 20:47] LABS: Influenza A QL RT-PCR Negative (Negative); Influenza B QL RT-PCR Negative (Negative); RSV RNA, RT-PCR Positive (Negative); SARS-CoV-2 RNA PCR Negative (Negative)
--- NOTE | 2023-12-12 23:01 | ED.GENADULT ---
HPI - General Adult General Chief complaint: Upper Respiratory Infection Stated complaint: rapid breathing Time Seen by Provider: 12/12/23 22:37 History of Present Illness HPI narrative: Patient is an 88-year-old female who presents to the emergency department this evening accompanied by her daughter due to concern for an upper respiratory infection. Patient admits that symptoms started on Sunday, and she has been around other sick contacts, including her granddaughter and her daughter who were both sick with similar URI symptoms. Patient admits to feeling some chills earlier today but denies any fevers. She has been using [id number] cough drops for her cough which she states have been helping. Patient denies any urinary symptoms including dysuria or hematuria. Admits she has been a little weaker lately. Otherwise, patient is alert and oriented to person, place, time and situation and has no additional concerns at this time. There are no additional modifying, alleviating, or precipitating factors. Related Data Home Medications Medication Instructions Recorded Confirmed aspirin 81 mg tablet,delayed 81 mg PO DAILY 09/12/19 11/20/23 release ascorbic acid (vitamin C) 1,000 mg 1 g PO DAILY 11/12/20 11/20/23 tablet cholecalciferol (vitamin D3) 25 25 mcg PO DAILY 11/12/20 11/20/23 mcg (1,000 unit) tablet lisinopril 10 mg tablet 10 mg PO .PRN 05/15/23 11/20/23 Allergies Allergy/AdvReac Type Severity Reaction Status Date / Time bacitracin Allergy Intermediate RASH, Verified 11/20/23 09:58 BLISTERS neomycin Allergy Intermediate RASH, Verified 11/20/23 09:58 BLISTERS polymyxin B Allergy Intermediate RASH, Verified 11/20/23 09:58 BLISTERS Penicillins Allergy Unknown Skin Verified 11/20/23 09:58 Reaction Review of Systems Review of Systems: All systems are reviewed and are negative unless stated otherwise in the HPI. [facility] Past Medical History Medical History Atrial fibrillation Paroxysmal Cataract Left 02-16-2020 Right 03-04-2020 Chronic GERD COVID-19 Essential (primary) hypertension Mixed hyperlipidemia Skin cancer Surgical History Surgical History History of excision of lesion Mohs procedure History of Zaki fundoplication History of repair of hiatal hernia (08/06/20) Family History Family History Sibling Diabetes mellitus Hypertension Family history of lung cancer Family history of cardiovascular disease Family history of malignant neoplasm of breast in first degree relative Family history of atrial fibrillation Non-Hodgkin lymphoma Father Diabetes mellitus Hypertension Family history of lung cancer Family history of atrial fibrillation Mother Hypertension Family history of elevated blood lipids Family history of cardiovascular disease Social History Social History Social History: The patient has 1 daughter who is the durable power double ending machine operator for healthcare. The patient desires to be a full code but does not want to live in a vegetative state. The patient is . 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 Patient denies any smoking alcohol marijuana or illicit drugs. Smoking status: Never smoker Alcohol intake: current Drinks per week: 1 Substance use: never Lack of Transportation: No Lack of Food: Never True Current Housing: I Have Housing Concerned About Future Housing: No Difficulty Paying Gas/Electric Bills: No Difficulty Paying for Meds: No Currently Unemployed: No Education: Bachelor's Degree Difficulty w/ Childcare or Family Care: No Gender identity (if verbalized by the patient): Female Spiritual care concerns: No
== END 2023-12-12 23:20 | disposition home or self-care (01) ==
LOC: ANHED 23:11
PROVIDERS: Emergency Provider Emergency Medicine; PCP Family Medicine
DX: J22 Unspecified acute lower respiratory infection (principal); B97.4 Respiratory syncytial virus as the cause of diseases classified elsewhere; Z20.822 Contact with and (suspected) exposure to COVID-19; I48.0 Paroxysmal atrial fibrillation; I10 Essential (primary) hypertension; E78.2 Mixed hyperlipidemia; K21.9 Gastro-esophageal reflux disease without esophagitis; Z86.16 Personal history of COVID-19; Z85.828 Personal history of other malignant neoplasm of skin; Z79.82 Long term (current) use of aspirin
CPT/HCPCS: 71045; 87637; 99283

== ENCOUNTER 2023-12-24 11:06 | Outpatient (CLI) | payer MEDICARE, SELFPAY ==
--- NOTE | ~2023-12-24 | US_ITS ---
EXAMINATION: US venous doppler LE RT DATE: 12/24/2023 11:52 INDICATION: Right lower limb pain and swelling TECHNIQUE: Grayscale ultrasound images without and with compression and Doppler ultrasound images of the right lower extremity veins were obtained. COMPARISON: None. FINDINGS: Noncompressible occlusive appearing thrombus throughout the right femoral vein. Additional nonocclusi ve thrombus within the partially compressible right popliteal and gastrocnemius veins. The visualized portions of right common femoral vein, profunda (deep) femoral vein, posterior tibial veins, peronea l veins and greater saphenous vein outflow are patent. IMPRESSION: 1. Deep venous thrombosis in the right femoral, popliteal and gastrocnemius veins. Reviewed, dictated and finalized at location A. IMPRESSION: 1. Deep venous thrombosis in the right femoral, popliteal and gastrocnemius ve ins.
== END 2023-12-24 11:07 | disposition home or self-care (01) ==
LOC: ANHIMG 11:06
PROVIDERS: PCP Family Medicine; Visit Provider Family Medicine
DX: M79.89 Other specified soft tissue disorders (principal); I82.411 Acute embolism and thrombosis of right femoral vein; I82.431 Acute embolism and thrombosis of right popliteal vein; I82.461 Acute embolism and thrombosis of right calf muscular vein
CPT/HCPCS: 93971

== ENCOUNTER 2024-03-17 08:32 | Outpatient (CLI) | payer MEDICARE, SELFPAY ==
[2024-03-17 18:48] LABS: Hematocrit 46.9 % (37.0-47.0); Hemoglobin 15.2 g/dL (12.0-15.0); Mean Corpuscular HGB Conc 32.4 g/dl (32-36); Mean Corpuscular Hemoglobin 31.1 pg (26-34); Mean Corpuscular Volume 96.1 fl (80-100); Mean Platelet Volume 11.2 fl (7.4-10.4); Platelet Count Result 188 k/mm3 (150-375); Red Blood Count 4.88 M/mm3 (4.2-5.4); Red Cell Distribution Width 12.8 % (11.5-14.5); White Blood Count 7.1 K/mm3 (4.5-10.0)
[2024-03-17 19:28] LABS: Alanine Aminotransferase 29 U/L (6-35); Albumin Level 4.3 g/dL (3.5-5.1); Alkaline Phosphatase 71 U/L (38-126); Anion Gap 10 mmol/L (4-12); Aspartate Amino Transferase 46 U/L (14-36); Bilirubin,Total 0.6 mg/dL (0.2-1.3); Blood Urea Nitrogen 22 mg/dL (7-17); Calcium 9.9 mg/dL (8.4-10.2); Carbon Dioxide 27 mmol/L (22-30); Chloride 106 mmol/L (98-107); Cholesterol 201 mg/dL (0-200); Estimated Glomerular Filt Rate 53; Glucose 87 mg/dL (65-110); HDL Direct 52 mg/dL; Potassium 4.3 mmol/L (3.4-5.0); Sodium 143 mmol/L (137-145); Triglycerides 107 mg/dL (<150)
[2024-03-17 19:35] LABS: Vitamin D 25 Hydroxy 71.7 ng/mL
[2024-03-17 19:39] LABS: LDL Cholesterol Direct 118 mg/dL
== END 2024-03-17 08:33 | disposition home or self-care (01) ==
LOC: ANHGOSHLAB 08:34
PROVIDERS: PCP Family Medicine; Visit Provider Nurse Practitioner
DX: E55.9 Vitamin D deficiency, unspecified (principal); E78.5 Hyperlipidemia, unspecified
CPT/HCPCS: 36415; 80053; 80061; 82306; 84443; 85027

== ENCOUNTER 2024-05-08 10:15 | Inpatient (IN) | payer MEDICARE, SELFPAY ==
[2024-05-08] VITALS (51 sets, daily range): BP systolic 114–165; BP diastolic 66–119; PULSE 54–142; RESP 10–26; TEMP 36.4–36.8; O2SAT 92–100; BMI 29.4
--- NOTE | ~2024-05-08 | XR_ITS ---
Clinical Indication: Palpitations PA and lateral views of the chest: Comparison: 12/12/2023 Findings: The lungs are clear, without evidence of focal consolidation or pleural effusion. Cardiome diastinal silhouette is within normal limits. Bones and soft tissues are unremarkable. Impression: Normal chest. Reviewed, dictated and finalized at location . Impression: Normal chest.
--- NOTE | ~2024-05-08 | CT_ITS ---
Clinical Indication: Atrial fibrillation, blood clot CT Scan of the Chest, Abdomen, and Pelvis with Contrast: Technique: Contiguous sections were acquired throughout the chest, abdomen, and pelvis after intraven ous administration of 100 cc of Omnipaque 350. Dose reduction technique was used on this scan by ashely roe automated exposure control and iterative reconstruction technique. The dose-length product (DL P) was 531.83 mGy-cm. COMPARISON: 07/16/2020 Findings: There is no evidence of any significant mediastinal, hilar or axillary lymphadenopathy. The mediastin al soft tissues appear normal. No pulmonary embolus seen. No aortic aneurysm or dissection. There are extensive atherosclerotic calcifications of the aorta. There is no evidence of pleural or pericardial effusion. The lungs are clear. No pulmonary nodules or infiltrates are noted. The liver, spleen, pancreas, gallbladder, adrenals and left kidney are within normal limits. Large ri ght renal cyst present. There are atherosclerotic calcifications of the aorta. No lymphadenopathy. No bowel obstruction or bowel wall thickening. There is no evidence to suggest acute appendicitis. Urinary bladder is unremarkable. No pelvic mass seen. No ascites. Impression: No pulmonary embolus evident. No significant abnormality seen. Reviewed, dictated and finalized at [facility]. Impression: No pulmonary embolus evident. No significant abnormality seen.
--- NOTE | 2024-05-08 10:17 | ECG_ITS ---
Test Date: 2024-05-08 10:24:42 Measurements Intervals [place] Rate: 139 P: 0 NM: 0 QRS: -20 QRSD: 97 T: 85 QT: 312 QTc: 475 Interpretive Statements ATRIAL FIBRILLATION WITH RAPID VENTRICULAR RESPONSE MODERATE VOLTAGE CRITERIA FOR LVH, CONSIDER NORMAL VARIANT [MEETS CRITERIA IN ONE OF: R(aVL), S(V1), R(V5), R(V5/V6)+S(V1)] NONSPECIFIC ST & T-WAVE ABNORMALITY ABNORMAL ELECTROCARDIOGRAM No previous ECG available for comparison Electronically Signed On 05-08-2024 13:26:07 CDT by Todd Hernandez M.D.
--- NOTE | 2024-05-08 10:40 | ED.GENADULT ---
HPI - General Adult General Chief complaint: Recheck/Abnormal Lab/Rx <Michelle Dykes APRN - Last Filed: 05/08/24 14:45> Stated complaint: sent by PCP with HTN and tachycardia <Michelle Dykes APRN - Last Filed: 05/08/24 14:45> Time Seen by Provider: 05/08/24 10:38 <Michelle Dykes APRN - Last Filed: 05/08/24 14:45> Source: patient and family <Michelle Dykes APRN - Last Filed: 05/08/24 14:45> Mode of arrival: ambulatory <Michelle Dykes APRN - Last Filed: 05/08/24 14:45> Limitations: no limitations <Michelle Dykes APRN - Last Filed: 05/08/24 14:45> History of Present Illness HPI narrative: Pt is an 88-year-old female who presents to the ER with complaints of high blood pressure and a. fib. She reports the episodes of increased heart rate started on Sunday. Pt reports she took her blood pressure at home on Sunday and it was 170s/100s, so I took my PRN Lisinopril andit just kept going up. She reports she has been taking her Metoprolol as prescribed and taking her PRN Lisinoril BID because of the increased BP. Pt denies edema in either lower extremity, but endorses she did have a RLE blood clot two months ago and is on Elliquis. Pt reports she called her doctor earlier today and they advised her to come to the ER. She presents to the ER with her daughter. Pt denies chest pain, shortness of breath, weakness/numbness/tingling or lower extremity pain. <Michelle Dykes APRN - Last Filed: 05/08/24 14:45> Related Data Home medications: Home Medications Medication Instructions Recorded Confirmed ascorbic acid (vitamin C) 1,000 mg 1 g PO DAILY 11/12/20 05/08/24 tablet lisinopril 10 mg tablet 10 mg PO .PRN 05/15/23 05/08/24 acetaminophen 500 mg/15 mL oral 650 mg PO Q4H PRN Pain 03/24/24 05/08/24 liquid apixaban 5 mg tablet (Eliquis) 10 mg PO Q12H 03/24/24 05/08/24 multivitamin 1 tablet PO DAILY 03/24/24 05/08/24 <Michelle Dykes APRN - Last Filed: 05/08/24 14:45> Allergies/adverse reactions: Allergies Allergy/AdvReac Type Severity Reaction Status Date / Time bacitracin Allergy Intermediate RASH, Verified 05/08/24 10:16 BLISTERS neomycin Allergy Intermediate RASH, Verified 05/08/24 10:16 BLISTERS polymyxin B Allergy Intermediate RASH, Verified 05/08/24 10:16 BLISTERS Penicillins Allergy Unknown Skin Verified 05/08/24 10:16 Reaction <Michelle Dykes APRN - Last Filed: 05/08/24 14:45> Review of Systems Review of Systems: All systems reviewed & are unremarkable except as noted in HPI and below <Michelle Dykes APRN - Last Filed: 05/08/24 14:45> [facility] Past Medical History Medical History: Medical History Atrial fibrillation Paroxysmal Cataract Left 02-16-2020 Right 03-04-2020 Chronic GERD COVID-19 Essential (primary) hypertension Mixed hyperlipidemia Skin cancer <Michelle Dykes APRN - Last Filed: 05/08/24 14:45> Surgical History Surgical History: Surgical History History of excision of lesion Mohs procedure History of Zaki fundoplication History of repair of hiatal hernia (08/06/20) <Michelle Dykes APRN - Last Filed: 05/08/24 14:45> Family History Family History: Family History Sibling Diabetes mellitus Hypertension Family history of lung cancer Family history of cardiovascular disease Family history of malignant neoplasm of breast in first degree relative Family history of atrial fibrillation Non-Hodgkin lymphoma Father Diabetes mellitus Hypertension Family history of lung cancer Family history of atrial fibrillation Mother Hypertension Family history of elevated blood lipids Family history of cardiovascular disease <Michelle Dykes APRN - Last Filed: 05/08/24 14:45> Soci
[2024-05-08] MEDS: SODIUM CHLORIDE 0.9% IV 500 ML 999 ML IV CONT (11:12)
[2024-05-08] MEDS: dilTIAZem HCl INJ 25 MG/5 ML VIAL 10 MG IV PUSH (11:13)
[2024-05-08 11:26] LABS: Basophils Absolute Auto 0.1 K/mm3 (0.0-0.1); Eosinophils Absolute Auto 0.1 K/mm3 (0-0.3); Eosinophils Percent Auto 1.3 % (0-4.4); Hematocrit 44.7 % (37.0-47.0); Hemoglobin 14.7 g/dL (12.0-15.0); Immature Granulocyte Absolute 0.02 K/mm3 (0.00-0.031); Immature Granulocyte Percent A 0.3 % (0-0.5); Lymphocytes Absolute Auto 2.36 K/mm3 (0.9-3.2); Lymphocytes Percent Auto 38.9 % (18.3-44.2); Mean Corpuscular HGB Conc 32.9 g/dl (32-36); Mean Corpuscular Hemoglobin 31.6 pg (26-34); Mean Corpuscular Volume 96.1 fl (80-100); Mean Platelet Volume 10.7 fl (7.4-10.4); Monocytes Absolute Auto 0.5 K/mm3 (0.1-0.6); Monocytes Percent Auto 8.1 % (2.6-8.5); Neutrophils Absolute Auto 3.1 K/mm3 (1.3-6.7); Neutrophils Percent Auto 50.4 % (45.5-73.1); Platelet Count Result 192 k/mm3 (150-375); Red Blood Count 4.65 M/mm3 (4.2-5.4); Red Cell Distribution Width 13.9 % (11.5-14.5); White Blood Count 6.1 K/mm3 (4.5-10.0)
[2024-05-08 11:31] LABS: Alanine Aminotransferase 24 U/L (6-35); Albumin Level 4.4 g/dL (3.5-5.1); Alkaline Phosphatase 54 U/L (38-126); Anion Gap 11 mmol/L (4-12); Aspartate Amino Transferase 42 U/L (14-36); Bilirubin,Total 0.8 mg/dL (0.2-1.3); Blood Urea Nitrogen 14 mg/dL (7-17); Calcium 9.6 mg/dL (8.4-10.2); Carbon Dioxide 23 mmol/L (22-30); Chloride 105 mmol/L (98-107); Estimated CRCL calculation 31 ml/min; Estimated Glomerular Filt Rate 53; Glucose 101 mg/dL (65-110); Lipase 62 U/L (23-300); Potassium 3.8 mmol/L (3.4-5.0); Sodium 139 mmol/L (137-145)
[2024-05-08 11:37] LABS: INR 1.4; Partial Thromboplastin Time 36.9 Seconds (22.3-36.8); Prothrombin Time 17.7 Seconds (11.1-14.7)
[2024-05-08 11:40] LABS: NT Pro B Type Natriuretic Pept 4070 pg/mL (19.9-100)
[2024-05-08 11:44] LABS: Troponin I < 0.012 ng/mL (0.000-0.034)
[2024-05-08 11:45] LABS: D Dimer 2.24 ug/mL (<0.48)
[2024-05-08 11:49] LABS: Add Urine Microscopic? YES; Appearance Urine Clear (Clear); Bacteria Urine 4+ /hpf; Bilirubin Urine Negative (Negative); Blood Urine Negative (Negative); Color Urine Yellow (Yellow); Glucose Urine UA Negative (Negative); Ketones Urine Negative (Negative); Leukocyte Esterase Ur 2+ LEU/UL (Negative); Nitrate Urine Negative (Negative); Non Pathogenic Casts 0-2; Protein Urine Negative (Negative); RBC Urine 0-2 /hpf (0-2); Specific Grav Ur 1.007 (1.001-1.035); Squamous Epithelial Cell Urine None Seen /hpf (Few); Urobilinogen Urine 0.2 mg/dL (<2.0)
[2024-05-08] MEDS: dilTIAZem 100 MG/100 ML 100 MG/100 ML BAG IV CONT (12:31)
[2024-05-08 14:30] LABS: Troponin I < 0.012 ng/mL (0.000-0.034)
--- NOTE | 2024-05-08 14:32 | PM.IMHP ---
H&P: HPI History of Present Illness Date/Time: 05/08/24 14:32 Chief Complaint: Palpitations Narrative: 88 y/o F presents here with palpitations with pAFib, GERD, HTN, and hyperlipidemia. The patient presents here from her PCP office for further evaluation of palpitations and tachycardia. Patient reports noting that her heart rate was in the 140's starting on Sunday (05/04) around 7 p.m. She reports the tachycardia/palpitations has been intermittent since Sunday. Endorsing associated decreased appetite, dizziness, and nausea. Dizziness and nausea has since resolved. Denying associated lower extremity swelling, shortness of breath, or diaphoresis. Concurrently experiencing an increase in her blood pressure, reports her BP on Sunday was in the 170s/100s with associated headache and LUE/midsternal chest pain/upper back pain between her shoulder blades. Pain in chest and upper back resolved with OTC lansoprazole. Patient is prescribed lisinopril b.i.d. p.r.n. for when her blood pressure is elevated, reports taking 10 mg x2 on Sunday and has taken it BID since then which has had a variable effect on her BP. Patient sought care at her PCP today and was directed to come to the ER for further care. Patient sees tow truck driver through [facility]/Reji Sanchez MD. Initial VS at presentation: 98.2? F, HR 132, RR 17, 148/117, and 100% on RA. ED workup showed: No leukocytosis, no anemia, INR 1.4, elevated D-dimer, creatinine 1.0 and GFR 53, BNP 4070, and initial troponin negative. UA suspicious for UTI. CXR showed normal chest. CTA of the chest/abdomen/pelvis showed no PE or significant abnormality seen. Review of Systems Review of Systems: All systems reviewed & are unremarkable except as noted in HPI and below [facility] Past Medical History Medical History Atrial fibrillation Paroxysmal Cataract Left 02-16-2020 Right 03-04-2020 Chronic GERD COVID-19 Essential (primary) hypertension Mixed hyperlipidemia Skin cancer Surgical History Surgical History History of excision of lesion Mohs procedure History of Zaki fundoplication History of repair of hiatal hernia (08/06/20) Family History Family History Sibling Diabetes mellitus Hypertension Family history of lung cancer Family history of cardiovascular disease Family history of malignant neoplasm of breast in first degree relative Family history of atrial fibrillation Non-Hodgkin lymphoma Father Diabetes mellitus Hypertension Family history of lung cancer Family history of atrial fibrillation Mother Hypertension Family history of elevated blood lipids Family history of cardiovascular disease Social History Social History Social History: The patient has 1 daughter who is the durable power corporate associate attorney for healthcare. The patient desires to be a full code but does not want to live in a vegetative state. The patient is . 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 Patient denies any smoking alcohol marijuana or illicit drugs. Smoking status: Never smoker Alcohol intake: never Drinks per week: 1 Substance use: never Do You Feel Safe in your Home?: Yes Lack of Transportation: No Lack of Food: Never True Current Housing: I Have Housing Concerned About Future Housing: No Difficulty Paying Gas/Electric Bills: No Difficulty Paying for Meds: No Currently Unemployed: No Education: Bachelor's Degree Difficulty w/ Childcare or Family Care: No Gender identity (if verbalized by the patient): Female Spiritual care concerns: No Meds Home Medications and Allergies Home Medications Medication Instructions Recorded Confirmed Type ashlie
[2024-05-08] MEDS: METOPROLOL TARTRATE INJ 5 MG/5 ML VIAL IV PUSH (14:57)
--- NOTE | 2024-05-08 15:48 | ADMGEN ---
This patient, Twyla Warren, was admitted to IMU Room 209-01. Patient/family oriented to hospital policies and general routines including ID bracelet, bed and alarms, visiting hours, pain management, procedures, bathroom and other care routines, personal items, smoking policy, room service/diet, and visiting hours. Information on how to activate the Rapid Response Team has been discussed. Patient/Family are encouraged to report perceived risks to care and to ask questions if they do not understand what they are told or what they should do.
[2024-05-08 17:49] LABS: Troponin I < 0.012 ng/mL (0.000-0.034)
[2024-05-08] MEDS: METOPROLOL TARTRATE 25 MG TABLET PO ×2 (17:49→20:09)
[2024-05-08] MEDS: APIXABAN 5 MG TABLET PO (20:10)
[2024-05-09] VITALS (22 sets, daily range): BP systolic 124–160; BP diastolic 87–100; PULSE 109–139; RESP 18–22; TEMP 36.1–36.6; O2SAT 97–100
--- NOTE | 2024-05-09 | ECHO_ITS ---
Patient Info Name: Twyla Warren Age: 88 years : 1935 Gender: Female Ht: 61 in Wt: 152 lbs BSA: 1.75 m2 HR: 133 bpm BP: 126 / 87 mmHg Heart Rhythm: Atrial Fibrillation Technical Quality: Good Exam Date: 05/09/2024 10:46 AM Exam Location: Echo Lab Patient Status: Inpatient Admit Date: 05/09/2024 Staff Ordering Physician: Kristine Liriano APRN [employer] Superintendent: Silva Temple RDCS Attending Provider: Mazin Silverman MD Referring Physician: Deandra ISLAS; Exam Type: CA echo dop color flow w con Study Info Indications - tachycardia, persistent Complete two-dimensional, color flow and Doppler transthoracic echocardiogram is performed with contrast to opacify the left ventricle and to improve the deliniation of the left ventricle endocardial borders. Summary 1. Normal left ventricular size, thickness and systolic function. 2. Moderate left atrial enlargement. 3. Mild mitral, aortic and tricuspid regurgitation. 4. Estimated pulmonary artery pressure 40. 5. Atrial fibrillation. Left Ventricle Left ventricular chamber dimension is normal. Left ventricular systolic function is normal, estimated at 60-65%. Right Ventricle Right ventricular chamber dimension is normal. Left Atria Left atrial chamber dimension is moderately enlarged. Right Atria Right atrial chamber dimension is normal. Aortic Valve The aortic valve is trileaflet. There is mild aortic valve sclerosis. There is mild aortic valve regurgitation. Pulmonic Valve The pulmonic valve is normal. Mitral Valve The mitral valve has normal leaflets. There is mild mitral valve regurgitation. Tricuspid Valve The tricuspid valve leaflets are normal. There is mild tricuspid valve regurgitation. Mild pulmonary hypertension, estimated pulmonary arterial systolic pressure is 40 mmHg. Pericardium/Pleural The pericardium appears normal. Aorta The aortic root size at the sinus of Valsalva is normal. Left Ventricular Outflow Tract Name Value Normal LVOT 2D LVOT Diameter 1.75 cm LVOT Doppler LVOT Peak Gradient 4 mmHg LVOT Mean Gradient 3 mmHg LVOT VTI 19.88 cm LVOT VTI/AV VTI Ratio 0.90 LVOT Stroke Volume 47.98 ml LVOT CO 5.77 l/min LVOT CI 3.31 L/min/m2 Pulmonic Valve Name Value Normal PV Doppler PV Peak Gradient 2 mmHg Mitral Valve Name Value Normal MV Doppler MV Decel [place] 1,044.84 cm/s2 MV PHT 0 s MV Area (PHT) 7.09 cm
[2024-05-09 05:10] LABS: Anion Gap 7 mmol/L (4-12); Blood Urea Nitrogen 15 mg/dL (7-17); Calcium 8.9 mg/dL (8.4-10.2); Carbon Dioxide 24 mmol/L (22-30); Chloride 108 mmol/L (98-107); Estimated CRCL calculation 32 ml/min; Estimated Glomerular Filt Rate 53; Glucose 91 mg/dL (65-110); Potassium 4.1 mmol/L (3.4-5.0); Sodium 139 mmol/L (137-145)
[2024-05-09 05:17] LABS: Basophils Percent Auto 0.7 % (0.2-1.2); Eosinophils Absolute Auto 0.2 K/mm3 (0-0.3); Eosinophils Percent Auto 3.6 % (0-4.4); Hematocrit 39.5 % (37.0-47.0); Hemoglobin 12.8 g/dL (12.0-15.0); Immature Granulocyte Absolute 0.01 K/mm3 (0.00-0.031); Immature Granulocyte Percent A 0.2 % (0-0.5); Mean Corpuscular HGB Conc 32.4 g/dl (32-36); Mean Corpuscular Hemoglobin 31.5 pg (26-34); Mean Corpuscular Volume 97.3 fl (80-100); Mean Platelet Volume 10.3 fl (7.4-10.4); Monocytes Absolute Auto 0.4 K/mm3 (0.1-0.6); Monocytes Percent Auto 9.8 % (2.6-8.5); Neutrophils Absolute Auto 1.6 K/mm3 (1.3-6.7); Neutrophils Percent Auto 37.7 % (45.5-73.1); Platelet Count Result 161 k/mm3 (150-375); Red Blood Count 4.06 M/mm3 (4.2-5.4); Red Cell Distribution Width 14.2 % (11.5-14.5); White Blood Count 4.2 K/mm3 (4.5-10.0)
[2024-05-09] MEDS: METOPROLOL TARTRATE INJ 5 MG/5 ML VIAL IV PUSH ×3 (08:19→21:46)
[2024-05-09] MEDS: SIMVASTATIN 10 MG TABLET PO (08:21)
[2024-05-09] MEDS: MULTIVITAMINS THERAPEUTIC TAB (*BKC) 1 TABLET PO (08:21)
[2024-05-09] MEDS: APIXABAN 5 MG TABLET PO ×2 (08:21→20:27)
[2024-05-09] MEDS: ASCORBIC ACID 500 MG TABLET 1000 MG PO (08:21)
[2024-05-09] MEDS: METOPROLOL TARTRATE 25 MG TABLET PO (08:22)
[2024-05-09] MEDS: PERFLUTREN LIPID MICROSPHERES 1.5 ML VIAL DILUTED TO 10 ML TOTAL VOLUME IV PUSH (10:25)
--- NOTE | 2024-05-09 10:31 | PM.CNCAR ---
Assessment and Plan Assessment and plan (1) Atrial fibrillation with rapid ventricular response: Code(s): I48.91 - Unspecified atrial fibrillation Status: Acute Assessment and Plan: History of paroxysmal atrial fibrillation. Per patient report, generally maintains sinus rhythm on metoprolol. Presents now to the hospital with atrial fibrillation with rapid ventricular response (rate in the 130s to 140s) in the setting of UTI. She is generally asymptomatic. I had a long discussion with the patient regarding management strategies for atrial fibrillation including rhythm control versus rate control. I told her that my preference would be to make an attempt to restore sinus rhythm since it sounds like she generally is in sinus rhythm. However, she has already eaten today, therefore electrical cardioversion is not an option. I talked with her about the option of chemical cardioversion with amiodarone. At this time she would prefer to attempt rate control, so we will proceed with that plan. Increase metoprolol to 37.5 mg q.6 hours P.r.n. metoprolol IV for heart rate sustained over 130bpm Continue anticoagulation with apixaban 5 mg q.12 hours Echocardiogram is pending Potassium 4.1, will check magnesium level Continue telemetry, can be downgraded to med/tele (2) Hypertension: Code(s): I10 - Essential (primary) hypertension Status: Acute Assessment and Plan: Blood pressure currently at goal. Continue lisinopril, metoprolol as above. May need to decrease lisinopril dose in light of increasing metoprolol for rate control. History of Present Illness History of Present Illness Consult date/time: 05/09/24 10:31 Requesting physician: Librado Feldman MD Consult reason: atrial fibrillation Reason For Visit: a fib with rvr Narrative: Twyla Warren is an 88-year-old female with hypertension, hyperlipidemia, and paroxysmal atrial fibrillation. This is a patient who follows in our office with Dr. Sanchez. Cardiology has been asked to see her because of atrial fibrillation with rapid ventricular response. Patient states she was out of town over the weekend and was feeling weak and fatigued. On her way back from her trip, she stopped at a pharmacy and took her blood pressure and pulse and her blood pressure was significantly elevated as well as her heart rate, heart rate was in the 140s. She called her primary care doctor who advised going to the emergency department. Patient states that she did not go to the emergency department right away, but when she still had a high heart rate the next day she decided to come for evaluation and treatment. Patient states that since her diagnosis with atrial fibrillation initially, she predominantly maintains sinus rhythm and does not think she has had an episode of atrial fibrillation in over a year. She previously had not been on systemic anticoagulation because it was cost prohibitive and she experienced significant nose bleeding. However, she did have a DVT in November of this year and was placed on Eliquis at that time. She continues to take Eliquis now. She is not feeling any palpitations, chest pain, shortness of breath. At the time of my evaluation she is resting comfortably in bed does not have any complaints. Review of Systems Review of Systems: All systems reviewed & are unremarkable except as noted in HPI and below PMFSH Past Medical History Medical History Atrial fibrillation Paroxysmal Cataract Left 02-16-2020 Right 03-04-2020 Chronic GERD COVID-19 Essential (primary) hypertension Mixed hyperlipidemia Skin cancer Surgical History Surgical History History of excision of lesion Mohs procedure History of Zaki fundoplication History of repair of hiatal hernia (08/06/20) Family History Family History (Reviewed 05/09/24 @ 12:36 by Natalee Sotelo
[2024-05-09] MEDS: dilTIAZem HCl INJ 25 MG/5 ML VIAL 10 MG IV PUSH (10:33)
--- NOTE | 2024-05-09 12:06 | IVDEFINITY ---
Prior to administration of IV Definity the patient was educated on the risks and benefits of the imaging enhancing agent including potential adverse side effects. The patient verbalized understanding. Allergies were verified. No exclusion criteria were identified and at least one of the following inclusion criteria were met: 1) physician request, 2) patient technically difficult to image (per the [place] [employer] guidelines of two or more segments not discernable within the apical view), or 3) questionable left ventricular function. ?
--- NOTE | 2024-05-09 12:42 | PM.IMPN ---
Progress Note: A&P Assessment and Plan (1) Atrial fibrillation with rapid ventricular response: Code(s): I48.91 - Unspecified atrial fibrillation Status: Acute (2) UTI (urinary tract infection): Qualifiers: Hematuria presence: without hematuria Urinary tract infection type: acute cystitis Qualified Code(s): N30.00 - Acute cystitis without hematuria Code(s): N39.0 - Urinary tract infection, site not specified Status: Acute (3) Right leg DVT: Code(s): I82.401 - Acute embolism and thrombosis of unspecified deep veins of right lower extremity Status: Acute Plan The patient presents here from her PCP office for further evaluation of palpitations and tachycardia. Patient reports noting that her heart rate was in the 140's starting on Sunday (05/04) around 7 p.m. She reports the tachycardia/palpitations has been intermittent since Sunday. Endorsing associated decreased appetite, dizziness, and nausea. Dizziness and nausea has since resolved. (1) Atrial fibrillation: Qualifiers: Atrial fibrillation type: paroxysmal Qualified Code(s): I48.0 - Paroxysmal atrial fibrillation Code(s): I48.91 - Unspecified atrial fibrillation Status: Chronic Assessment and Plan: - EKG, initial:AFib with RVR, rate 139, moderate voltage criteria for LVH maybe normal variant, nonspecific ST and T-wave abnormality. - CXR: Normal chest - CTA chest/abdomen/pelvis: No PE or significant abnormality - Troponin: <0.012 x2, 6 hr ordered - on metoprolol 25 mg BID and Eliquis, continue anticoagulant Provided Diltiazem 10 mg IVP and transitioned to gtt, currently at 15 mg/hr. continue metoprolol 25 mg b.i.d., - echo, previous (11/2020): normal LV systolic function, estimated EF 70%, grade 2 diastolic dysfunction. See report for details. - BNP 4070, will update echo - TSH on 03/17/24 was 3.070, no previous hx of thyroid dysfunction - telemetry monitoring Consult sorting grapple operator for evaluation treatment (2) UTI (urinary tract infection): Qualifiers: Hematuria presence: without hematuria Urinary tract infection type: acute cystitis Qualified Code(s): N30.00 - Acute cystitis without hematuria Code(s): N39.0 - Urinary tract infection, site not specified Status: Acute Assessment and Plan: - UA: 2+ leuks, 6-10 WBC, no epithelial cells, 4+ bacteria - UC pending - previous micro reviewed, no previous resistances - started on Ceftriaxone on 05/08 (3) Chronic kidney disease, stage 3 (moderate): Qualifiers: Chronic kidney disease stage 3 subtype: unspecified whether 3a or 3b Qualified Code(s): N18.30 - Chronic kidney disease, stage 3 unspecified Code(s): N18.3 - Chronic kidney disease, stage 3 (moderate) Status: Chronic Assessment and Plan: - creatinine 1.0 and GFR 53, previously 1.0 and GFR 53 on 03/17/2024 - hx of CKD stage 3 - trend renal function - trend electrolytes, correct as needed (4) Essential (primary) hypertension: Code(s): I10 - Essential (primary) hypertension Status: Chronic Assessment and Plan: - chronic, currently 155/100 - continue home medications: lisinopril 10 mg b.i.d. p.r.n., metoprolol 25 mg b.i.d. - monitor Subjective Date/time seen: 05/09/24 12:42 Interval history: I saw exam patient today, patient still has palpitation, some shortness breath. Patient denies chest pain abdomen pain nausea vomiting diarrhea dysuria. shelter monitor showed AFib RVR Exam Narrative: GENERAL: Pleasant, in no acute distress. Well-nourished. - EYES: EOMI. Anicteric. - HENT: Moist mucous membranes. - LUNGS: Clear to auscultation bilaterally, no wheezing, rhonchi, or rales. - CARDIOVASCULAR: Irregularly irregular rhythm, tachycardia,. No murmur. No JVD. - ABDOMEN: Soft, non-tender and non-distended. No palpable masses. - EXTREMITIES: No edema. Peripheral pulses 2+. No
[2024-05-09] MEDS: METOPROLOL TARTRATE 12.5 MG TABLET 37.5 MG PO ×3 (13:03→23:52)
[2024-05-09 13:40] LABS: Magnesium 2.1 mg/dL (1.6-2.3)
[2024-05-10] VITALS (16 sets, daily range): BP systolic 126–142; BP diastolic 52–93; PULSE 45–123; RESP 12–20; TEMP 36.4–36.7; O2SAT 98–100
--- NOTE | 2024-05-10 00:18 | PC.NURSE ---
Patient converted to SR-SB at 0006. Received 5mg IV Lopressor at 2146 for sustained HR over 130. Received schedule 37.5mg PO Lopressor at 2352. Patient then got up to the bathroom, then back to bed, and converted. Will continue to monitor, HR is between 48-low 60's.
[2024-05-10] MEDS: METOPROLOL TARTRATE 12.5 MG TABLET 37.5 MG PO ×2 (06:20→11:54)
[2024-05-10] MEDS: MULTIVITAMINS THERAPEUTIC TAB (*BKC) 1 TABLET PO (09:52)
[2024-05-10] MEDS: ASCORBIC ACID 500 MG TABLET 1000 MG PO (09:52)
[2024-05-10] MEDS: APIXABAN 5 MG TABLET PO ×2 (09:52→22:17)
[2024-05-10] MEDS: SIMVASTATIN 10 MG TABLET PO (09:52)
--- NOTE | 2024-05-10 11:53 | PM.IMPN ---
Progress Note: A&P Assessment and Plan (1) Atrial fibrillation with rapid ventricular response: Code(s): I48.91 - Unspecified atrial fibrillation Status: Acute Assessment and Plan: Patient converted to normal sinus rhythm. Will continue current treatment course. (2) UTI (urinary tract infection): Qualifiers: Urinary tract infection type: acute cystitis Hematuria presence: without hematuria Qualified Code(s): N30.00 - Acute cystitis without hematuria Code(s): N39.0 - Urinary tract infection, site not specified Status: Acute Assessment and Plan: Patient is on antibiotics. Culture and history is pending. (3) Right leg DVT: Code(s): I82.401 - Acute embolism and thrombosis of unspecified deep veins of right lower extremity Status: Acute Assessment and Plan: Continue with anticoagulation. Plan 05/10/2024 Patient self converted to sinus rhythm. Plan is to transfer her to [facility]. Will continue to monitor. Urine culture is pending. Possible discharge home in the morning. The patient presents here from her PCP office for further evaluation of palpitations and tachycardia. Patient reports noting that her heart rate was in the 140's starting on Sunday (05/04) around 7 p.m. She reports the tachycardia/palpitations has been intermittent since Sunday. Endorsing associated decreased appetite, dizziness, and nausea. Dizziness and nausea has since resolved. (1) Atrial fibrillation: Qualifiers: Atrial fibrillation type: paroxysmal Qualified Code(s): I48.0 - Paroxysmal atrial fibrillation Code(s): I48.91 - Unspecified atrial fibrillation Status: Chronic Assessment and Plan: - EKG, initial:AFib with RVR, rate 139, moderate voltage criteria for LVH maybe normal variant, nonspecific ST and T-wave abnormality. - CXR: Normal chest - CTA chest/abdomen/pelvis: No PE or significant abnormality - Troponin: <0.012 x2, 6 hr ordered - on metoprolol 25 mg BID and Eliquis, continue anticoagulant Provided Diltiazem 10 mg IVP and transitioned to gtt, currently at 15 mg/hr. continue metoprolol 25 mg b.i.d., - echo, previous (11/2020): normal LV systolic function, estimated EF 70%, grade 2 diastolic dysfunction. See report for details. - BNP 4070, will update echo - TSH on 03/17/24 was 3.070, no previous hx of thyroid dysfunction - telemetry monitoring Consult call center receptionist for evaluation treatment (2) UTI (urinary tract infection): Qualifiers: Hematuria presence: without hematuria Urinary tract infection type: acute cystitis Qualified Code(s): N30.00 - Acute cystitis without hematuria Code(s): N39.0 - Urinary tract infection, site not specified Status: Acute Assessment and Plan: - UA: 2+ leuks, 6-10 WBC, no epithelial cells, 4+ bacteria - UC pending - previous micro reviewed, no previous resistances - started on Ceftriaxone on 05/08 (3) Chronic kidney disease, stage 3 (moderate): Qualifiers: Chronic kidney disease stage 3 subtype: unspecified whether 3a or 3b Qualified Code(s): N18.30 - Chronic kidney disease, stage 3 unspecified Code(s): N18.3 - Chronic kidney disease, stage 3 (moderate) Status: Chronic Assessment and Plan: - creatinine 1.0 and GFR 53, previously 1.0 and GFR 53 on 03/17/2024 - hx of CKD stage 3 - trend renal function - trend electrolytes, correct as needed (4) Essential (primary) hypertension: Code(s): I10 - Essential (primary) hypertension Status: Chronic Assessment and Plan: - chronic, currently 155/100 - continue home medications: lisinopril 10 mg b.i.d. p.r.n., metoprolol 25 mg b.i.d. - monitor Subjective Date/time seen: 05/10/24 11:53 Interval history: Patient was seen during the morning rounds. Patient is feeling much better. No shortness or chest pain. No abdominal pain, no vomiting. Mood stable
--- NOTE | 2024-05-10 12:37 | PM.PNCARD ---
Progress Note: A&P Assessment and Plan (1) Atrial fibrillation with rapid ventricular response: Code(s): I48.91 - Unspecified atrial fibrillation Status: Acute Plan Paroxysmal atrial fibrillation status spontaneous post cardioversion sinus rhythm Hypertension controlled Plan Continue oral anticoagulation apixaban 5 mg b.i.d. Change metoprolol to 75 mg b.i.d. Cardiology will sign off please call back if needed Subjective Date/time seen: 05/10/24 12:37 Interval history: no acute events tele: NSR Review of Systems Review of Systems: All systems reviewed & are unremarkable except as noted in HPI and below Exam Const: General: comfortable, no acute distress, alert and awake Orientation/consciousness: patient oriented x3 HENMT: Head: normal to inspection Eyes: General: appearance normal, both eyes and all related structures Pupils: Equal, round and reactive pupils present Neck: Neck: normal visual inspection, supple and no JVD Carotids: normal carotid upstroke Resp: Effort & Inspection: normal respiratory effort Auscultation: clear to auscultation bilaterally Cardio: Rate: tachycardic Rhythm: abnormal rhythm irregularly irregular Heart sounds: S1 normal heart sound present, S2 normal heart sound present and no murmurs GI: Auscultation: normal bowel sounds Skin: General skin exam: normal color Neuro: General: patient oriented x3 Cranial nerves: Yes Equal, round and reactive pupils present Extrem: General: normal to inspection Psych: Appearance: grossly normal Mental Status: mental status grossly normal Objective Data Vital Signs Vital Signs: Vital Signs - 24 hr 05/09/24 13:03 05/09/24 14:23 05/09/24 14:00 Temperature Pulse Rate 120 H 139 H 131 H Respiratory Rate Blood Pressure Pulse Oximetry Oxygen Delivery 05/09/24 15:47 05/09/24 16:00 05/09/24 16:00 Temperature 36.6 C Pulse Rate 133 H 121 H 133 H Respiratory Rate 22 H Blood Pressure 124/99 H Pulse Oximetry 97 99 Oxygen Delivery Room Air 05/09/24 17:28 05/09/24 18:00 05/09/24 20:00 Temperature 36.6 C Pulse Rate 135 H 126 H 127 H Respiratory Rate 22 H Blood Pressure 130/95 H Pulse Oximetry 99 Oxygen Delivery 05/09/24 20:00 05/09/24 21:46 05/09/24 20:00 Temperature Pulse Rate 126 H 137 H 124 H Respiratory Rate Blood Pressure Pulse Oximetry 100 Oxygen Delivery Room Air 05/09/24 22:00 05/09/24 23:52 05/10/24 00:00 Temperature 36.4 C Pulse Rate 126 H 125 H 123 H Respiratory Rate 20 Blood Pressure 130/93 H Pulse Oximetry 100 Oxygen Delivery 05/10/24 00:00 05/10/24 02:00 05/10/24 00:00 Temperature Pulse Rate 119 H 49 L 119 H Respiratory Rate Blood Pressure Pulse Oximetry 100 Oxygen Delivery Room Air 05/10/24 04:00 05/10/24 04:00 05/10/24 04:00 Temperature 36.4 C L Pulse Rate 49 L 58 L Respiratory Rate 16 Blood Pressure 142/68 H Pulse Oximetry 100 Oxygen Delivery Room Air 05/10/24 06:20 05/10/24 06:00 05/10/24 08:00 Temperature 36.6 C Pulse Rate 60 50 L 62 Respiratory Rate 20 Blood Pressure 126/54 L Pulse Oximetry 99 Oxygen Delivery 05/10/24 08:00 05/10/24 10:00 05/10/24 12:00 Temperature 36.7 C Pulse Rate 52 L 51 L Respiratory Rate 12 Blood Pressure 137/73 Pulse Oximetry 100 98 Oxygen Delivery Room Air Intake/Output Intake/Output: Intake & Output 05/07/24 05/08/24 05/09/24 05/10/24 23:59 23:59 23:59 23:59 Intake Total 1105.9 2070 240 Output Total 239 2000 400 Balance 866.9 70 -160 Meds/Results Medications: Active Medications Generic Name Dose Route Start Last Admin Trade Name Freq PRN Reason Stop Dose Admin Acetaminophen 650 mg 05/08/24 16:57 Acetaminophen Elixir 325 Mg/10.15 Ml Udc PO Q4H PRN Pain Rated 1-3 Apixaban 5 mg 05/08/24 21:00 05/10/24 09:52 Apixaban 5 Mg Tablet PO 5 mg Q12HR [facility] Administra
[2024-05-10] MEDS: METOPROLOL TARTRATE TAB 25 MG, METOPROLOL TARTRATE TAB 50 MG 75 MG PO (22:17)
[2024-05-11] VITALS (7 sets, daily range): BP systolic 124–151; BP diastolic 53–82; PULSE 48–68; RESP 20; TEMP 36.6–36.7; O2SAT 100
--- NOTE | 2024-05-11 08:05 | PM.DS ---
DS: Admitting Diagnosis Discharge Date 05/11/2024 Admitting Diagnosis Atrial fibrillation with RVR DS: Discharge Diagnosis Discharge Diagnosis (1) Atrial fibrillation with rapid ventricular response: Code(s): I48.91 - Unspecified atrial fibrillation Status: Acute Assessment and Plan: Patient converted to normal sinus rhythm. Will continue current treatment course. (2) UTI (urinary tract infection): Qualifiers: Urinary tract infection type: acute cystitis Hematuria presence: without hematuria Qualified Code(s): N30.00 - Acute cystitis without hematuria Code(s): N39.0 - Urinary tract infection, site not specified Status: Acute Assessment and Plan: Patient is on antibiotics. Culture and history is pending. (3) Right leg DVT: Code(s): I82.401 - Acute embolism and thrombosis of unspecified deep veins of right lower extremity Status: Acute Assessment and Plan: Continue with anticoagulation. Plan 05/10/2024 Patient self converted to sinus rhythm. Plan is to transfer her to [facility]. Will continue to monitor. Urine culture is pending. Possible discharge home in the morning. The patient presents here from her PCP office for further evaluation of palpitations and tachycardia. Patient reports noting that her heart rate was in the 140's starting on Sunday (05/04) around 7 p.m. She reports the tachycardia/palpitations has been intermittent since Sunday. Endorsing associated decreased appetite, dizziness, and nausea. Dizziness and nausea has since resolved. (1) Atrial fibrillation: Qualifiers: Atrial fibrillation type: paroxysmal Qualified Code(s): I48.0 - Paroxysmal atrial fibrillation Code(s): I48.91 - Unspecified atrial fibrillation Status: Chronic Assessment and Plan: - EKG, initial:AFib with RVR, rate 139, moderate voltage criteria for LVH maybe normal variant, nonspecific ST and T-wave abnormality. - CXR: Normal chest - CTA chest/abdomen/pelvis: No PE or significant abnormality - Troponin: <0.012 x2, 6 hr ordered - on metoprolol 25 mg BID and Eliquis, continue anticoagulant Provided Diltiazem 10 mg IVP and transitioned to gtt, currently at 15 mg/hr. continue metoprolol 25 mg b.i.d., - echo, previous (11/2020): normal LV systolic function, estimated EF 70%, grade 2 diastolic dysfunction. See report for details. - BNP 4070, will update echo - TSH on 03/17/24 was 3.070, no previous hx of thyroid dysfunction - telemetry monitoring Consult bottling line operator for evaluation treatment (2) UTI (urinary tract infection): Qualifiers: Hematuria presence: without hematuria Urinary tract infection type: acute cystitis Qualified Code(s): N30.00 - Acute cystitis without hematuria Code(s): N39.0 - Urinary tract infection, site not specified Status: Acute Assessment and Plan: - UA: 2+ leuks, 6-10 WBC, no epithelial cells, 4+ bacteria - UC pending - previous micro reviewed, no previous resistances - started on Ceftriaxone on 05/08 (3) Chronic kidney disease, stage 3 (moderate): Qualifiers: Chronic kidney disease stage 3 subtype: unspecified whether 3a or 3b Qualified Code(s): N18.30 - Chronic kidney disease, stage 3 unspecified Code(s): N18.3 - Chronic kidney disease, stage 3 (moderate) Status: Chronic Assessment and Plan: - creatinine 1.0 and GFR 53, previously 1.0 and GFR 53 on 03/17/2024 - hx of CKD stage 3 - trend renal function - trend electrolytes, correct as needed (4) Essential (primary) hypertension: Code(s): I10 - Essential (primary) hypertension Status: Chronic Assessment and Plan: - chronic, currently 155/100 - continue home medications: lisinopril 10 mg b.i.d. p.r.n., metoprolol 25 mg b.i.d. - monitor DS: Summary Hospital Course Reason for hospitalization: Atrial fibrillation with RVR Hospital Course:
--- NOTE | 2024-05-11 08:58 | PC.NURSE ---
Shantal pratt called consulted about possible discharge patient, dr. shantal pratt agreed to discharge after medication adjustment of 75 mg B.i.D to 50 mg b.i.d. Yogi asked if i can submit medication order
[2024-05-11] MEDS: METOPROLOL TARTRATE 50 MG TAB PO ×2 (09:26→09:27)
[2024-05-11] MEDS: APIXABAN 5 MG TABLET PO (09:27)
[2024-05-11] MEDS: SIMVASTATIN 10 MG TABLET PO (09:27)
[2024-05-11] MEDS: MULTIVITAMINS THERAPEUTIC TAB (*BKC) 1 TABLET PO (09:27)
[2024-05-11] MEDS: ASCORBIC ACID 500 MG TABLET 1000 MG PO (09:27)
== END 2024-05-11 10:53 | disposition home or self-care (01) | DRG 309 ==
LOC: ANHED 11:53 → ANHIMU 15:29
PROVIDERS: Emergency Medicine; Nurse Practitioner; Student in an Organized Health Care Education/Training Program; Admitting Provider General Practice; Emergency Provider Registered Nurse; PCP Family Medicine; Visit Provider Internal Medicine
DX: I48.0 Paroxysmal atrial fibrillation (principal); I82.401 Acute embolism and thrombosis of unspecified deep veins of right lower extremity; N39.0 Urinary tract infection, site not specified; I12.9 Hypertensive chronic kidney disease with stage 1 through stage 4 chronic kidney disease, or unspecified chronic kidney disease; N18.30 Chronic kidney disease, stage 3 unspecified; K21.9 Gastro-esophageal reflux disease without esophagitis; E78.2 Mixed hyperlipidemia; Z85.828 Personal history of other malignant neoplasm of skin; Z86.16 Personal history of COVID-19
CPT/HCPCS: 36415; 71046; 71275; 74174; 80048; 80053; 81001; 83690; 83735; 83880; 84484; 85025; 85380; 85610; 85730; 87077; 87086; 87088; 87186; 93005; 96365; 96366; 96375; 96376; 99285; A9270; C8929; G0378; J0696; J7040; Q9957; Q9967

== ENCOUNTER 2024-06-16 15:06 | Inpatient (IN) | payer MEDICARE, SELFPAY ==
[2024-06-16] VITALS (9 sets, daily range): BP systolic 126–162; BP diastolic 90–110; PULSE 114–129; RESP 14–20; TEMP 36.4–36.6; O2SAT 95–100; BMI 28.5
--- NOTE | ~2024-06-16 | XR_ITS ---
EXAMINATION: XR chest 2V DATE: 06/16/2024 16:21 INDICATION: Shortness of breath and chest pain. TECHNIQUE: Frontal and lateral views of the chest were obtained. COMPARISON: Chest 2 views 05/08/2024, chest CT 05/08/2024 FINDINGS: There is mild scarring at right lung apex. No pleural effusion or pneumothorax. Cardiomegal y is noted. There are surgical clips in the abdomen. IMPRESSION: 1. Mild scarring at right lung apex. 2. Cardiomegaly. Reviewed, dictated and finalized at location A.
--- NOTE | 2024-06-16 15:52 | ED.GENADULT ---
HPI - General Adult General Chief complaint: Dizziness <EBER Angel Last Filed: 06/16/24 16:10> Stated complaint: elevated blood pressure and heart rate <Becca Bay PA-C - Last Filed: 06/16/24 16:10> Time Seen by Provider: 06/16/24 15:52 <EBER Angel Last Filed: 06/16/24 16:10> Focused HPI: Patient is an 89 y/o female who presents to the ED with c/o elevated HR/BP. Patient reports she was recently admitted to the hospital here with AFIB with RVR. Sees Dr. Biswas. Currently on Metoprolol 75mg BID, Lisinopril 20mg, Eliquis 5mg BID. Is compliant with these medications. States she has been monitoring her HR/BP at home. Today, BP was elevated into the 180s systolic and HR in the 130s. States she can feel her heart racing. She also reports today she has been feeling exhausted, even speaking in conversation makes her feel tired. Also reports mild dizziness and kassy blurry vision today. She does c/o mild chest heaviness/tightness. GENERAL: Elderly but well appearing, well-nourished, and in no acute distress. HEAD: Normocephalic, atraumatic. CHEST: Clear to auscultation. ?No respiratory distress. HEART: Tachycardic with irregular rhythm.? NEURO: ?Alert and oriented x3. Patient screened in triage and initial orders placed.? ?Additional care and disposition to be based upon?diagnostic testing and treatment. <Becca Bay PA-C - Last Filed: 06/16/24 16:10> Source: patient and old records reviewed <EBER Angel Last Filed: 06/16/24 16:10> Mode of arrival: ambulatory <EBER Angel Last Filed: 06/16/24 16:10> Limitations: no limitations <EBER Angel Last Filed: 06/16/24 16:10> History of Present Illness HPI narrative: Agree with HPI <Aaron Arriola MD - Last Filed: 06/16/24 22:16> Related Data Home medications: Home Medications Medication Instructions Recorded Confirmed ascorbic acid (vitamin C) 1,000 mg 1 g PO DAILY 11/12/20 06/16/24 tablet apixaban 5 mg tablet (Eliquis) 5 mg PO Q12H 06/09/24 06/16/24 coffee extract 100 mg-phosphatidyl 1 cap PO DAILY 06/16/24 06/16/24 serine 100 mg capsule (Neuriva Original) lisinopril 10 mg tablet 20 mg PO DAILY 06/16/24 06/16/24 vitamin D3 125 mcg (5,000 1 cap PO DAILY 06/16/24 06/16/24 unit)-vitamin K2 100 mcg capsule <Becca Bay PA-C - Last Filed: 06/16/24 16:10> Allergies/adverse reactions: Allergies Allergy/AdvReac Type Severity Reaction Status Date / Time bacitracin Allergy Intermediate RASH, Verified 06/16/24 22:10 BLISTERS neomycin Allergy Intermediate RASH, Verified 06/16/24 22:10 BLISTERS polymyxin B Allergy Intermediate RASH, Verified 06/16/24 22:10 BLISTERS Penicillins Allergy Unknown Skin Verified 06/16/24 22:10 Reaction <Becca Bay PA-C - Last Filed: 06/16/24 16:10> Review of Systems Review of Systems: All systems reviewed & are unremarkable except as noted in HPI and below <Aaron Arriola MD - Last Filed: 06/16/24 22:16> Constitutional: Constitutional: Denies chills, Reports fatigue and Denies fever(s) <Aaron Arriola MD - Last Filed: 06/16/24 22:16> ENT: Reports system reviewed and no additional complaints, except as documented <Aaron Arriola MD - Last Filed: 06/16/24 22:16> Cardiovascular: Cardiovascular: Denies chest pain, Reports rapid heart rate, Denies radiating jaw, neck or arm pain and Denies slow heart rate <Aaron Arriola MD - Last Filed: 06/16/24 22:16> Respiratory: Respiratory: Reports no additional respiratory complaints <Aaron Arriola MD - Last Filed: 06/16/24 22:16> Genitourinary: Genitourinary: Reports no additional female genitourinary complaints <Aaron Arriola MD - Last Filed: 06/16/24 22:16> Musculoskeletal: Musculoskeletal: Reports no additional musculoskeletal complaints <Aaron Arriola MD - Last File
--- NOTE | 2024-06-16 15:55 | ECG_ITS ---
Test Date: 2024-06-16 15:59:52 Measurements Intervals [place] Rate: 116 P: 0 MN: 0 QRS: -11 QRSD: 76 T: 75 QT: 299 QTc: 417 Interpretive Statements ATRIAL FIBRILLATION WITH RAPID VENTRICULAR RESPONSE VOLTAGE EVIDENCE OF LEFT VENTRICULAR HYPERTROPHY NONSPECIFIC T-WAVE ABNORMALITY ABNORMAL RHYTHM ECG Compared to ECG 05/08/2024 10:24:42 NO SIGNIFICANT DIFFERENCE Electronically Signed On 06-17-2024 07:22:06 CDT by Todd Hernandez M.D.
[2024-06-16 16:18] LABS: Basophils Absolute Auto 0.1 K/mm3 (0.0-0.1); Basophils Percent Auto 1.2 % (0.2-1.2); Eosinophils Absolute Auto 0.1 K/mm3 (0-0.3); Eosinophils Percent Auto 2.3 % (0-4.4); Hematocrit 41.8 % (37.0-47.0); Hemoglobin 13.9 g/dL (12.0-15.0); Lymphocytes Absolute Auto 2.34 K/mm3 (0.9-3.2); Lymphocytes Percent Auto 45.3 % (18.3-44.2); Mean Corpuscular HGB Conc 33.3 g/dl (32-36); Mean Corpuscular Volume 96.3 fl (80-100); Monocytes Absolute Auto 0.6 K/mm3 (0.1-0.6); Monocytes Percent Auto 11.2 % (2.6-8.5); Neutrophils Absolute Auto 2.1 K/mm3 (1.3-6.7); Platelet Count Result 214 k/mm3 (150-375); Red Blood Count 4.34 M/mm3 (4.2-5.4); Red Cell Distribution Width 13.7 % (11.5-14.5); White Blood Count 5.2 K/mm3 (4.5-10.0)
[2024-06-16 16:29] LABS: INR 1.4; Prothrombin Time 17.6 Seconds (11.1-14.7)
[2024-06-16 16:30] LABS: Partial Thromboplastin Time 33.4 Seconds (22.3-36.8)
[2024-06-16 16:34] LABS: Alanine Aminotransferase 35 U/L (6-35); Albumin Level 4.2 g/dL (3.5-5.1); Alkaline Phosphatase 60 U/L (38-126); Anion Gap 11 mmol/L (4-12); Aspartate Amino Transferase 53 U/L (14-36); Bilirubin,Total 0.5 mg/dL (0.2-1.3); Blood Urea Nitrogen 19 mg/dL (7-17); Calcium 9.6 mg/dL (8.4-10.2); Carbon Dioxide 20 mmol/L (22-30); Chloride 109 mmol/L (98-107); Estimated CRCL calculation 33 ml/min; Estimated Glomerular Filt Rate 59; Glucose 105 mg/dL (65-110); Magnesium 2.1 mg/dL (1.6-2.3); Potassium 4.2 mmol/L (3.4-5.0); Sodium 140 mmol/L (137-145)
[2024-06-16 16:46] LABS: NT Pro B Type Natriuretic Pept 4580 pg/mL (19.9-100); Troponin I < 0.012 ng/mL (0.000-0.034)
[2024-06-16] MEDS: dilTIAZem HCl INJ 25 MG/5 ML VIAL 15 MG IV PUSH (20:05)
--- NOTE | 2024-06-16 20:20 | ECG_ITS ---
Test Date: 2024-06-16 20:28:23 Measurements Intervals [place] Rate: 127 P: 0 IN: 0 QRS: -14 QRSD: 82 T: 77 QT: 330 QTc: 480 Interpretive Statements ATRIAL FIBRILLATION WITH RAPID VENTRICULAR RESPONSE MODERATE VOLTAGE CRITERIA FOR LVH, CONSIDER NORMAL VARIANT [MEETS CRITERIA IN ONE OF: R(aVL), S(V1), R(V5), R(V5/V6)+S(V1)] NONSPECIFIC ST & T-WAVE ABNORMALITY ABNORMAL RHYTHM ECG Compared to ECG 06/16/2024 15:59:52 No significant changes Electronically Signed On 06-17-2024 07:28:15 CDT by Todd Hernandez M.D.
[2024-06-16 20:22] LABS: Troponin I < 0.012 ng/mL (0.000-0.034)
[2024-06-16] MEDS: dilTIAZem 100 MG/100 ML 100 MG/100 ML BAG IV CONT (21:16)
--- NOTE | 2024-06-16 21:43 | PM.IMHP ---
H&P: HPI History of Present Illness Date/Time: 06/16/24 21:43 Chief Complaint: palpitations Narrative: This is an 89-year-old female with past medical history significant for atrial fibrillation, chronic kidney disease, GERD, dyslipidemia. patient presents to the emergency room due to palpitations, feeling lightheaded, dizzy, had pressure in her chest, denies nausea, vomiting, abdominal pain, has been her usual state of health up until this point. In emergency room patient was found to have atrial fibrillation with rapid ventricular response. EXAMINATION: XR chest 2V DATE: 06/16/2024 16:21 INDICATION: Shortness of breath and chest pain. TECHNIQUE: Frontal and lateral views of the chest were obtained. COMPARISON: Chest 2 views 05/08/2024, chest CT 05/08/2024 FINDINGS: There is mild scarring at right lung apex. No pleural effusion or pneumothorax. Cardiomegaly is noted. There are surgical clips in the abdomen. IMPRESSION: 1. Mild scarring at right lung apex. 2. Cardiomegaly. Review of Systems Review of Systems: palpitations, chest pressure, lightheadedness, dizziness. [facility] Past Medical History Medical History Atrial fibrillation Paroxysmal Cataract Left 02-16-2020 Right 03-04-2020 Chronic GERD COVID-19 Essential (primary) hypertension Mixed hyperlipidemia Skin cancer Surgical History Surgical History History of excision of lesion Mohs procedure History of Zaki fundoplication History of repair of hiatal hernia (08/06/20) Family History Family History (Updated 06/16/24 @ 23:40 by Shraddha Lacey RN) Sibling Family history of cardiovascular disease Diabetes mellitus Non-Hodgkin lymphoma Family history of lung cancer Family history of malignant neoplasm of breast in first degree relative Family history of atrial fibrillation Hypertension Father Family history of lung cancer Hypertension Mother Family history of cardiovascular disease Family history of elevated blood lipids Hypertension Social History Social History Social History: The patient has 1 daughter who is the durable power litigation attorney associate for healthcare. The patient desires to be a full code but does not want to live in a vegetative state. The patient is . 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 Patient denies any smoking alcohol marijuana or illicit drugs. Smoking status: Never smoker Alcohol intake: never Drinks per week: 1 Substance use: never Do You Feel Safe in your Home?: Yes Lack of Transportation: No Lack of Food: Never True Current Housing: I Have Housing Concerned About Future Housing: No Difficulty Paying Gas/Electric Bills: No Difficulty Paying for Meds: No Currently Unemployed: No Education: Bachelor's Degree Difficulty w/ Childcare or Family Care: No Gender identity (if verbalized by the patient): Female Spiritual care concerns: No Meds Home Medications and Allergies Home Medications Medication Instructions Recorded Confirmed Type ascorbic acid (vitamin C) 1,000 mg 1 g PO DAILY 11/12/20 06/16/24 History tablet simvastatin 10 mg tablet 10 mg PO DAILY #90 tabs 03/07/24 06/16/24 Rx metoprolol tartrate 75 mg tablet 75 mg PO BID #180 tabs 06/03/24 06/16/24 Rx apixaban 5 mg tablet (Eliquis) 5 mg PO Q12H 06/09/24 06/16/24 History coffee extract 100 mg-phosphatidyl 1 cap PO DAILY 06/16/24 06/16/24 History serine 100 mg capsule (Neuriva Original) lisinopril 10 mg tablet 20 mg PO DAILY 06/16/24 06/16/24 History vitamin D3 125 mcg (5,000 1 cap PO DAILY 06/16/24 06/16/24 History unit)-vitamin K2 100 mcg capsule Allergies Allergy/AdvReac Type Severity Reaction Status Date / Time bacitracin Allergy Intermediate
--- NOTE | 2024-06-16 22:35 | ECG_ITS ---
Test Date: 2024-06-16 22:39:00 Measurements Intervals [place] Rate: 121 P: 0 VA: 0 QRS: -16 QRSD: 83 T: 143 QT: 276 QTc: 392 Interpretive Statements ATRIAL FIBRILLATION WITH RAPID VENTRICULAR RESPONSE MODERATE VOLTAGE CRITERIA FOR LVH, CONSIDER NORMAL VARIANT [MEETS CRITERIA IN ONE OF: R(aVL), S(V1), R(V5), R(V5/V6)+S(V1)] NONSPECIFIC ST & T-WAVE ABNORMALITY ABNORMAL ECG Compared to ECG 06/16/2024 20:28:23 No significant changes Electronically Signed On 06-17-2024 07:31:10 CDT by Todd Hernandez M.D.
--- NOTE | 2024-06-16 23:11 | PC.NURSE ---
Report received from ED nurse Lili JOHNSTON.
[2024-06-16 23:15] LABS: Troponin I < 0.012 ng/mL (0.000-0.034)
--- NOTE | 2024-06-16 23:25 | ADMGEN ---
This patient, Twyla Warren, was admitted to IMU Room 213-01. Patient/family oriented to hospital policies and general routines including ID bracelet, bed and alarms, visiting hours, pain management, procedures, bathroom and other care routines, personal items, smoking policy, room service/diet, and visiting hours. Information on how to activate the Rapid Response Team has been discussed. Patient/Family are encouraged to report perceived risks to care and to ask questions if they do not understand what they are told or what they should do.
[2024-06-17] VITALS (25 sets, daily range): BP systolic 98–141; BP diastolic 49–99; PULSE 40–129; RESP 12–20; TEMP 36.3–37.1; O2SAT 97–99
[2024-06-17] MEDS: AMIODARONE 150 MG/D5W 100 ML 150 MG/100 ML BAG 600 MG IV CONT (01:53)
[2024-06-17] MEDS: AMIODARONE 360 MG/D5W 200 ML 360 MG/200 ML BAG 33.33 MG IV CONT (01:58)
[2024-06-17] MEDS: AMIODARONE 360 MG/D5W 200 ML 360 MG/200 ML BAG 16.67 MG IV CONT (07:26)
[2024-06-17] MEDS: METOPROLOL TARTRATE 25 MG TABLET 75 MG PO (09:29)
[2024-06-17] MEDS: lisinopriL 20 MG TABLET PO (09:29)
[2024-06-17] MEDS: APIXABAN 5 MG TABLET PO ×2 (09:30→21:14)
[2024-06-17] MEDS: SIMVASTATIN 10 MG TABLET PO (09:30)
--- NOTE | 2024-06-17 11:18 | PM.CNCAR ---
Assessment and Plan Assessment and plan (1) Atrial fibrillation with RVR: Code(s): I48.91 - Unspecified atrial fibrillation Status: Acute Plan this is an 89-year-old woman with a history of paroxysmal atrial fibrillation admitted with says symptomatic sustained recurrence of the arrhythmia for the 2nd time in the last 5-6 weeks. She is systemically anticoagulated with apixaban. She has been receiving intravenous amiodarone since yesterday evening and is still in atrial fib and she is hemodynamically stable. Given her recent echo showing normal LV systolic function and lack of any coronary disease, normal renal function I am going to transition her medication regimen to sotalol. I would hope to avoid having to treat this elderly lady with amiodarone if possible. Hopefully the sotalol will restore sinus rhythm will start that with this evening's dose. Since She has already received oral metoprolol this morning. if she does not medically convert with sotalol we will consider DC cardioversion while she is here Todd Hernandez MD [facility] History of Present Illness History of Present Illness Consult date/time: 06/17/24 11:18 Reason For Visit: Afib RVR Narrative: this is an 89-year-old woman I am seeing at the request of the hospitalist for assistance with the evaluation and management of atrial fibrillation. She is apparently known to my partner, Dr. Sanchez and has a history of paroxysmal atrial fibrillation. She has been treated in the past with diltiazem and recently she had a recurrence of her AFib being managed in the hospital just over a month ago and was transition to metoprolol. Initially the plan was to provide rate control and anticoagulation but with metoprolol she converted to sinus rhythm and was discharged in sinus rhythm. She says that for the last several weeks she has noticed episodes of intermittent atrial fibrillation which he notices or pulse to be fast and when this happens she does does not feel well feels weak and has lack of energy. She came into the hospital yesterday afternoon with a sustained recurrence of this and was seen in the emergency room and admitted by the hospitalist. By echocardiogram during the recent admission she was known to have normal left ventricular systolic function and no significant valvular disease. She is known to have coronary artery disease. After admission she was placed on intravenous amiodarone infusion. She appears to be relatively comfortable at this time she still is in atrial fibrillation with a heart rate of about 100-110. Otherwise she is hemodynamically stable and offers no complaints currently. Her laboratory data demonstrates that her renal function is normal. Review of Systems Constitutional: Constitutional: Reports lethargy Eyes: Eyes: Reports no additional eye complaints ENT: Reports system reviewed and no additional complaints, except as documented Cardiovascular: Cardiovascular: Reports palpitations Respiratory: Respiratory: Reports dyspnea on exertion Gastrointestinal: Gastrointestinal: Reports no additional gastrointestinal complaints Genitourinary: Genitourinary: Reports no additional female genitourinary complaints Musculoskeletal: Musculoskeletal: Reports no additional musculoskeletal complaints Integumentary/Breasts: Skin/Breast: Reports system reviewed and no additional complaints, except as docu Neurologic: Reports system reviewed and no additional complaints, except as documented Endocrine: Endocrine: Reports no additional endocrine complaints Hematologic/Lymphatic: Hematologic/Lymphatic: Reports no additional hematologic/lymphatic complaints Allergic/Immunologic: Allergic/Immunologic: Reports no additional allergic/immunologic complaints [facility] Past Medical History Medical History Atrial fibrillation Paroxysmal Cataract Left 02-16-2020 Right 03-04-2020 Chronic GERD COV
--- NOTE | 2024-06-17 11:20 | ECG_ITS ---
Test Date: 2024-06-17 11:33:31 Measurements Intervals [place] Rate: 41 P: 0 DC: 0 QRS: -3 QRSD: 77 T: -9 QT: 521 QTc: 434 Interpretive Statements MARKED SINUS BRADYCARDIA WITH OCCASIONAL JUNCTIONAL COMPLEXES NONSPECIFIC ST AND T ABNORMALITY ABNORMAL ECG Compared to ECG 06/16/2024 22:39:00 SINUS BRADYCARDIA REPLACES ATRIAL FIBRILLATION Electronically Signed On 06-18-2024 07:02:53 CDT by Todd Hernandez M.D.
--- NOTE | 2024-06-17 13:51 | PM.IMPN ---
Progress Note: A&P Assessment and Plan (1) Atrial fibrillation with RVR: Code(s): I48.91 - Unspecified atrial fibrillation Status: Acute (2) Chronic GERD: Code(s): K21.9 - Gastro-esophageal reflux disease without esophagitis Status: Chronic (3) Mixed hyperlipidemia: Code(s): E78.2 - Mixed hyperlipidemia Status: Chronic (4) Essential (primary) hypertension: Code(s): I10 - Essential (primary) hypertension Status: Chronic (5) Chronic kidney disease, stage 3 (moderate): Qualifiers: Chronic kidney disease stage 3 subtype: unspecified whether 3a or 3b Qualified Code(s): N18.30 - Chronic kidney disease, stage 3 unspecified Code(s): N18.3 - Chronic kidney disease, stage 3 (moderate) Status: Chronic Plan This is a an 89-year-old female who presents to the ED with elevated heart rate and blood pressure. She has a history of AFib. On metoprolol and Eliquis. She has been compliant with his medications. At home her blood pressure was elevated to 180s over 130s and felt like heart was racing. She has been also feeling exhausted. Mildly dizzy and mild blurriness of the vision. Mild chest heaviness or tightness and hence presented to the ED. In the ER vitals showed tachycardia in 120s blood pressure elevated 147/107. EKG showed AFib with RVR. Laboratory evaluation showed normal cbc. CMP was unremarkable. Troponin was negative. BNP was 4580. LFTs were normal. TSH normal at 1.080. Chest x-ray showed mild scarring at right lung apex with cardiomegaly. She was started on Cardizem drip in the ED which was switched to amiodarone which has now been discontinued. Rate has been controlled since then and has been now discontinued. Cardiology consulted. She has been switched to sotalol. Continue to monitor here consider DC cardioversion if sotalol fails. DVT prophylaxis on apixaban Hypertension Hyperlipidemia Chronic GERD Proximal atrial fibrillation Code status full code Subjective Date/time seen: 06/17/24 13:51 Interval history: Overnight events. Feels better. Heart rate is controlled. No chest pain or shortness of breath. Review of Systems Review of Systems: All systems reviewed & are unremarkable except as noted in HPI and below Exam Narrative: GENERAL: Well-appearing, well-nourished, and in no acute distress. HEAD: Normocephalic, atraumatic. ENT: Mucous membranes moist. CHEST: Clear to auscultation. No respiratory distress. HEART: Irregular regular rate and rhythm, Rate controlled, Normal peripheral pulses. ABDOMEN: Soft, nontender, nondistended. EXTREMITIES: Normal range of motion. No edema. SKIN: Warm, dry, no rash. NEURO: Alert and oriented x3. PSYCH: Normal mood and affect. Objective Data Vital Signs Vital Signs: Vital Signs - 24 hr 06/16/24 15:40 06/16/24 19:26 06/16/24 21:16 Temperature 97.5 F L Pulse Rate 126 H 115 H 128 H Respiratory Rate 18 14 Blood Pressure 147/107 H 155/94 H Pulse Oximetry 99 99 Oxygen Delivery Room Air 06/16/24 20:17 06/16/24 21:57 06/16/24 22:26 Temperature Pulse Rate 115 H 114 H 126 H Respiratory Rate 20 15 Blood Pressure 126/90 141/99 H 144/109 H Pulse Oximetry 95 97 Oxygen Delivery 06/16/24 22:27 06/16/24 23:14 06/16/24 23:28 Temperature 97.8 F Pulse Rate 129 H 119 H 117 H Respiratory Rate 17 16 Blood Pressure 161/109 H 162/100 H 157/110 H Pulse Oximetry 100 98 Oxygen Delivery 06/17/24 01:53 06/17/24 01:58 06/17/24 02:30 Temperature Pulse Rate 129 H 129 H 114 H Respiratory Rate 16 Blood Pressure 140/98 H 140/98 H 137/86 Pulse Oximetry 97 Oxygen Delivery 06/16/24 23:30 06/17/24 00:00 06/17/24 02:00 Temperature Pulse Rate 126 H 118 H Respiratory Rate Blood Pressure Pulse Oximetry Oxygen Delivery Room Air 06/17/24 04:00 06/17/24 04:00 06/17/24 04:00 Temperature 98.7 F Pulse Rate 108 H 108 H Respira
--- NOTE | 2024-06-17 13:56 | PC.NURSE ---
1130- pt converted to SB with junctional beats 38-42. BP 142/74- 12 lead EKG ordered. pt asymptomatic- stated she feels better ; Dr. Hernandez in unit- informed of change in rhythmn , SB with junctional beats 38-44; reviewed rhythm- continue to monitor
--- NOTE | 2024-06-17 22:28 | PC.NURSE ---
2130: Upon assessment pt reported she sometimes wakes up short of breath. Patient denies other symptoms of RONDA and has never had a sleep study. RN initiated a continuous pulse ox to monitor oxygen while sleeping. Will report findings to provider.
[2024-06-18] VITALS (20 sets, daily range): BP systolic 135–155; BP diastolic 55–83; PULSE 46–87; RESP 18–20; TEMP 36.3–37.1; O2SAT 97–100
[2024-06-18 05:59] LABS: Basophils Percent Auto 0.7 % (0.2-1.2); Eosinophils Absolute Auto 0.2 K/mm3 (0-0.3); Hematocrit 38.3 % (37.0-47.0); Hemoglobin 12.6 g/dL (12.0-15.0); Immature Granulocyte Absolute 0.01 K/mm3 (0.00-0.031); Immature Granulocyte Percent A 0.2 % (0-0.5); Lymphocytes Percent Auto 44.7 % (18.3-44.2); Mean Corpuscular HGB Conc 32.9 g/dl (32-36); Mean Corpuscular Hemoglobin 32.5 pg (26-34); Mean Corpuscular Volume 98.7 fl (80-100); Mean Platelet Volume 10.6 fl (7.4-10.4); Monocytes Absolute Auto 0.5 K/mm3 (0.1-0.6); Monocytes Percent Auto 11.3 % (2.6-8.5); Neutrophils Absolute Auto 1.7 K/mm3 (1.3-6.7); Neutrophils Percent Auto 39.1 % (45.5-73.1); Platelet Count Result 163 k/mm3 (150-375); Red Blood Count 3.88 M/mm3 (4.2-5.4); Red Cell Distribution Width 13.9 % (11.5-14.5); White Blood Count 4.3 K/mm3 (4.5-10.0)
[2024-06-18 06:06] LABS: Alanine Aminotransferase 25 U/L (6-35); Albumin Level 3.3 g/dL (3.5-5.1); Alkaline Phosphatase 53 U/L (38-126); Anion Gap 6 mmol/L (4-12); Aspartate Amino Transferase 33 U/L (14-36); Bilirubin,Total 0.9 mg/dL (0.2-1.3); Blood Urea Nitrogen 18 mg/dL (7-17); Carbon Dioxide 23 mmol/L (22-30); Chloride 108 mmol/L (98-107); Estimated CRCL calculation 29 ml/min; Estimated Glomerular Filt Rate 47; Glucose 89 mg/dL (65-110); Magnesium 2.3 mg/dL (1.6-2.3); Potassium 3.7 mmol/L (3.4-5.0); Sodium 137 mmol/L (137-145)
[2024-06-18] MEDS: APIXABAN 5 MG TABLET PO ×2 (08:19→20:13)
[2024-06-18] MEDS: SIMVASTATIN 10 MG TABLET PO (08:19)
[2024-06-18] MEDS: SOTALOL HCL 80 MG TABLET PO (08:19)
[2024-06-18] MEDS: lisinopriL 20 MG TABLET PO (08:19)
--- NOTE | 2024-06-18 09:43 | ECG_ITS ---
Test Date: 2024-06-18 11:20:56 Measurements Intervals [place] Rate: 54 P: 76 DC: 197 QRS: -10 QRSD: 79 T: -8 QT: 459 QTc: 436 Interpretive Statements SINUS BRADYCARDIA WITH MARKED SINUS ARRHYTHMIA LOW QRS VOLTAGE IN PRECORDIAL LEADS [QRS DEFLECTION < 1.0 mV IN CHEST LEADS] MODERATE VOLTAGE CRITERIA FOR LVH, CONSIDER NORMAL VARIANT [MEETS CRITERIA IN ONE OF: R(aVL), S(V1), R(V5), R(V5/V6)+S(V1)] NONSPECIFIC T-WAVE ABNORMALITY ABNORMAL ECG Compared to ECG 06/17/2024 11:33:31 JUNCTIONAL RHYTHM IS NO LONGER SEEN Electronically Signed On 06-19-2024 07:46:22 CDT by Todd Hernandez M.D.
--- NOTE | 2024-06-18 12:33 | PC.NURSE ---
Pt voided 200 ml in 6 hours. Bladder scan 307ml. Dr. Min made aware. Advised to monitor and notify provider if pt is unable to void and residuals are >400 ml.
--- NOTE | 2024-06-18 13:55 | PM.IMPN ---
Progress Note: A&P Assessment and Plan (1) Atrial fibrillation with RVR: Code(s): I48.91 - Unspecified atrial fibrillation Status: Acute (2) Chronic GERD: Code(s): K21.9 - Gastro-esophageal reflux disease without esophagitis Status: Chronic (3) Mixed hyperlipidemia: Code(s): E78.2 - Mixed hyperlipidemia Status: Chronic (4) Essential (primary) hypertension: Code(s): I10 - Essential (primary) hypertension Status: Chronic (5) Chronic kidney disease, stage 3 (moderate): Qualifiers: Chronic kidney disease stage 3 subtype: unspecified whether 3a or 3b Qualified Code(s): N18.30 - Chronic kidney disease, stage 3 unspecified Code(s): N18.3 - Chronic kidney disease, stage 3 (moderate) Status: Chronic Plan HPI - This is a an 89-year-old female who presents to the ED with elevated heart rate and blood pressure. She has a history of AFib. On metoprolol and Eliquis. She has been compliant with his medications. At home her blood pressure was elevated to 180s over 130s and felt like heart was racing. She has been also feeling exhausted. Mildly dizzy and mild blurriness of the vision. Mild chest heaviness or tightness and hence presented to the ED. ED - In the ER vitals showed tachycardia in 120s blood pressure elevated 147/107. EKG showed AFib with RVR. Laboratory evaluation showed normal cbc. CMP was unremarkable. Troponin was negative. BNP was 4580. LFTs were normal. TSH normal at 1.080. Chest x-ray showed mild scarring at right lung apex with cardiomegaly. Hosp Coarse - She was started on Cardizem drip in the ED which was switched to amiodarone which has now been discontinued. Rate was controlled since then. Cardiology consulted. Sotalol added and she converted to NSR. The dose decreased due to sinus bradycardia and jct rhythm. Apixaban continued. Increase activity. Colace prn. Watch WBC. Consider PTOT if needed. Hypertension Hyperlipidemia Chronic GERD Proximal atrial fibrillation Code status full code Subjective Date/time seen: 06/18/24 13:55 Interval history: 89yo female with pAFib and HTN here for palpitations. Assuming care. Chart reviewed. No chest pain or shortness of breath. No nausea or vomiting. She feels weak from being in bed. Exam Narrative: AF 98.1 148/59 58 20 100% ra Gen - NARD Chest -few basilar rhonchi otherwise clear CV - RRR S1/S2. Telemetry showing sinus bradycardia and sinus arrhythmias Abd - Soft, NT/ND, Positive BS Ext -trace pedal edema Psych - Nml mood and affect Skin - Warm and dry Objective Data Vital Signs Vital Signs: Vital Signs - 24 hr 06/17/24 14:00 06/17/24 16:20 06/17/24 16:25 Temperature Pulse Rate 45 L 47 L 51 L Respiratory Rate 20 Blood Pressure 118/64 Pulse Oximetry Oxygen Delivery 06/17/24 16:25 06/17/24 18:20 06/17/24 18:20 Temperature Pulse Rate 51 L 50 L 50 L Respiratory Rate 20 20 Blood Pressure 98/59 L Pulse Oximetry 98 Oxygen Delivery Room Air 06/17/24 18:25 06/17/24 20:57 06/17/24 21:17 Temperature 98.0 F Pulse Rate 50 L 49 L 47 L Respiratory Rate 20 Blood Pressure 116/58 L 118/49 L Pulse Oximetry 99 Oxygen Delivery 06/17/24 20:00 06/17/24 22:00 06/17/24 20:00 Temperature Pulse Rate 48 L 54 L Respiratory Rate Blood Pressure Pulse Oximetry 99 Oxygen Delivery Room Air 06/18/24 00:06 06/18/24 00:00 06/18/24 00:00 Temperature 97.7 F Pulse Rate 61 46 L Respiratory Rate 20 Blood Pressure 135/61 Pulse Oximetry 100 100 Oxygen Delivery Room Air 06/18/24 02:00 06/18/24 03:54 06/18/24 04:00 Temperature Pulse Rate 47 L 47 L Respiratory Rate Blood Pressure Pulse Oximetry 100 Oxygen Delivery Room Air 06/18/24 05:28 06/18/24 05:48 06/18/24 07:45 Temperature 98.7 F 97.3 F L Pulse Rate 52 L 61 53 L Respiratory Rate 20 18 Blood Pressure 146/55 H 1
--- NOTE | 2024-06-18 14:40 | PM.PNCARD ---
Progress Note: A&P Assessment and Plan (1) Atrial fibrillation with RVR: Code(s): I48.91 - Unspecified atrial fibrillation Status: Acute Plan 1. PAF CHADSVASC 4 Slow ventricular rate - Decrease dose of Sotalol to 40 mg bID - ECG done 2 hours after Sotalol given shows acceptable QTC. - Continue apixaban at current dose Subjective Date/time seen: 06/18/24 14:40 Interval history: No acute events overnight Switched to Sotalol yesterday, has been bradycardic QTC Within limits Review of Systems Constitutional: Constitutional: Reports lethargy Eyes: Eyes: Reports no additional eye complaints ENT: Reports system reviewed and no additional complaints, except as documented Cardiovascular: Cardiovascular: Reports palpitations and Reports dyspnea on exertion Respiratory: Respiratory: Reports dyspnea on exertion Gastrointestinal: Gastrointestinal: Reports no additional gastrointestinal complaints Genitourinary: Genitourinary: Reports no additional female genitourinary complaints Musculoskeletal: Musculoskeletal: Reports no additional musculoskeletal complaints Integumentary/Breasts: Skin/Breast: Reports system reviewed and no additional complaints, except as docu Neurologic: Reports system reviewed and no additional complaints, except as documented Endocrine: Endocrine: Reports no additional endocrine complaints and Reports palpitations Hematologic/Lymphatic: Hematologic/Lymphatic: Reports no additional hematologic/lymphatic complaints Allergic/Immunologic: Allergic/Immunologic: Reports no additional allergic/immunologic complaints Exam Const: General: comfortable and no acute distress Other: Pleasant elderly lady no distress HENMT: Mouth: Yes moist mucous membranes Eyes: Sclera: sclerae normal Neck: Neck: supple and no JVD Resp: Effort & Inspection: normal respiratory effort Auscultation: clear to auscultation bilaterally Cardio: Rate: tachycardic Rhythm: abnormal rhythm irregularly irregular GI: Auscultation: normal bowel sounds Skin: General skin exam: normal color Neuro: Other: alert and oriented x3 Extrem: General: normal to inspection Objective Data Vital Signs Vital Signs: Vital Signs - 24 hr 06/17/24 16:20 06/17/24 16:25 06/17/24 16:25 Temperature Pulse Rate 47 L 51 L 51 L Respiratory Rate 20 20 Blood Pressure 118/64 Pulse Oximetry 98 Oxygen Delivery Room Air 06/17/24 18:20 06/17/24 18:20 06/17/24 18:25 Temperature Pulse Rate 50 L 50 L 50 L Respiratory Rate 20 Blood Pressure 98/59 L 116/58 L Pulse Oximetry Oxygen Delivery 06/17/24 20:57 06/17/24 21:17 06/17/24 20:00 Temperature 36.7 C Pulse Rate 49 L 47 L 48 L Respiratory Rate 20 Blood Pressure 118/49 L Pulse Oximetry 99 Oxygen Delivery 06/17/24 22:00 06/17/24 20:00 06/18/24 00:06 Temperature 36.5 C Pulse Rate 54 L 61 Respiratory Rate 20 Blood Pressure 135/61 Pulse Oximetry 99 100 Oxygen Delivery Room Air 06/18/24 00:00 06/18/24 00:00 06/18/24 02:00 Temperature Pulse Rate 46 L 47 L Respiratory Rate Blood Pressure Pulse Oximetry 100 Oxygen Delivery Room Air 06/18/24 03:54 06/18/24 04:00 06/18/24 05:28 Temperature 37.1 C Pulse Rate 47 L 52 L Respiratory Rate 20 Blood Pressure 146/55 H Pulse Oximetry 100 99 Oxygen Delivery Room Air 06/18/24 05:48 06/18/24 07:45 06/18/24 08:19 Temperature 36.3 C L Pulse Rate 61 53 L 58 L Respiratory Rate 18 Blood Pressure 145/64 H Pulse Oximetry 99 Oxygen Delivery 06/18/24 08:00 06/18/24 10:00 06/18/24 08:00 Temperature Pulse Rate 53 L 56 L Respiratory Rate Blood Pressure Pulse Oximetry 100 Oxygen Delivery Room Air 06/18/24 12:00 Temperature 36.7 C Pulse Rate 58 L Respiratory Rate 20 Blood Pressure 148/59 H Pulse Oximetry 100 Oxygen Delivery Intake/Output Intake/Output: Intake & Output 06/15
[2024-06-18] MEDS: SOTALOL HCL 40 MG TABLET PO (20:13)
[2024-06-19] VITALS (18 sets, daily range): BP systolic 121–153; BP diastolic 48–66; PULSE 49–76; RESP 16–20; TEMP 36.5–37; O2SAT 98–100
[2024-06-19 06:24] LABS: Basophils Percent Auto 1.1 % (0.2-1.2); Eosinophils Absolute Auto 0.2 K/mm3 (0-0.3); Eosinophils Percent Auto 4.2 % (0-4.4); Hematocrit 36.8 % (37.0-47.0); Hemoglobin 11.7 g/dL (12.0-15.0); Immature Granulocyte Absolute 0.02 K/mm3 (0.00-0.031); Immature Granulocyte Percent A 0.5 % (0-0.5); Lymphocytes Absolute Auto 1.67 K/mm3 (0.9-3.2); Lymphocytes Percent Auto 44.1 % (18.3-44.2); Mean Corpuscular HGB Conc 31.8 g/dl (32-36); Mean Corpuscular Volume 97.6 fl (80-100); Mean Platelet Volume 10.3 fl (7.4-10.4); Monocytes Absolute Auto 0.5 K/mm3 (0.1-0.6); Monocytes Percent Auto 12.7 % (2.6-8.5); Neutrophils Absolute Auto 1.4 K/mm3 (1.3-6.7); Neutrophils Percent Auto 37.4 % (45.5-73.1); Platelet Count Result 171 k/mm3 (150-375); Red Blood Count 3.77 M/mm3 (4.2-5.4); Red Cell Distribution Width 13.6 % (11.5-14.5); White Blood Count 3.8 K/mm3 (4.5-10.0)
[2024-06-19 07:47] LABS: Anion Gap 6 mmol/L (4-12); Blood Urea Nitrogen 16 mg/dL (7-17); Calcium 9.1 mg/dL (8.4-10.2); Carbon Dioxide 24 mmol/L (22-30); Chloride 108 mmol/L (98-107); Estimated CRCL calculation 34 ml/min; Estimated Glomerular Filt Rate 59; Glucose 87 mg/dL (65-110); Potassium 3.9 mmol/L (3.4-5.0); Sodium 138 mmol/L (137-145)
[2024-06-19] MEDS: lisinopriL 20 MG TABLET PO (08:09)
[2024-06-19] MEDS: SIMVASTATIN 10 MG TABLET PO (08:09)
[2024-06-19] MEDS: SOTALOL HCL 40 MG TABLET PO (08:09)
[2024-06-19] MEDS: APIXABAN 5 MG TABLET PO ×2 (08:10→20:21)
--- NOTE | 2024-06-19 09:30 | PC.NURSE ---
Sitting up in bedside chair. Reports feeling nauseated and lightheaded. While at bedside pt reports nausea is going away. Pt brought in chair to bedside, then pivoted to bed. BP 137/61. Pulse 46. Pt reports feeling better but still has some residual lightheadedness. Dr. Hernandez made aware. No new orders noted.
--- NOTE | 2024-06-19 11:35 | PM.PNCARD ---
Progress Note: A&P Assessment and Plan (1) Atrial fibrillation with RVR: Code(s): I48.91 - Unspecified atrial fibrillation Status: Acute Plan 89-year-old lady with: Paroxysmal atrial fibrillation she has converted to sinus rhythm and is taking a low dose of sotalol. I am going to reduce the dose further to 80 mg once daily given her persistent albeit asymptomatic bradycardia. If she is otherwise stable we will consider discharge tomorrow on this very low dosage. Todd Hernandez MD [facility] Subjective Date/time seen: Date of service: 06/19/24 11:35 Interval history: Follow-up visit in this 89-year-old lady with: Paroxysmal atrial fibrillation she had been treated with metoprolol but with suboptimal rhythm control. She has now been transitioned to sotalol and is maintaining sinus rhythm although she is rather bradycardic. She is tolerating this without any serious symptoms but it is of some concern that her heart rate ranges from the high 30s to low 50s. Patient is sleeping and resting comfortably upon awakening she is in good spirits and feels well Exam Const: General: comfortable and no acute distress Other: Pleasant elderly lady no distress HENMT: Mouth: Yes moist mucous membranes Eyes: Sclera: sclerae normal Neck: Neck: supple and no JVD Resp: Effort & Inspection: normal respiratory effort Auscultation: clear to auscultation bilaterally Cardio: Rate: bradycardic Rhythm: regular rhythm GI: Auscultation: normal bowel sounds Skin: General skin exam: normal color Neuro: Other: alert and oriented x3 Extrem: General: normal to inspection Objective Data Vital Signs Vital Signs: Vital Signs - 24 hr 06/18/24 12:00 06/18/24 12:00 06/18/24 14:00 Temperature 36.7 C Pulse Rate 58 L 87 57 L Respiratory Rate 20 Blood Pressure 148/59 H Pulse Oximetry 100 Oxygen Delivery 06/18/24 12:00 06/18/24 16:00 06/18/24 16:00 Temperature 36.9 C Pulse Rate 54 L 59 L Respiratory Rate 18 Blood Pressure 140/55 L Pulse Oximetry 99 97 Oxygen Delivery Room Air 06/18/24 16:00 06/18/24 18:00 06/18/24 19:35 Temperature 36.5 C Pulse Rate 61 55 L Respiratory Rate 18 Blood Pressure 137/59 L Pulse Oximetry 99 Oxygen Delivery Room Air 06/18/24 20:13 06/18/24 20:00 06/18/24 22:00 Temperature Pulse Rate 59 L 53 L 52 L Respiratory Rate Blood Pressure Pulse Oximetry Oxygen Delivery 06/18/24 23:25 06/19/24 00:00 06/19/24 02:00 Temperature 36.4 C Pulse Rate 49 L 58 L 55 L Respiratory Rate 18 Blood Pressure 155/83 H Pulse Oximetry 100 Oxygen Delivery 06/19/24 04:10 06/19/24 04:00 06/19/24 04:00 Temperature 37.0 C Pulse Rate 54 L 51 L Respiratory Rate 18 Blood Pressure 145/57 H Pulse Oximetry 98 Oxygen Delivery Room Air 06/19/24 06:00 06/19/24 07:52 06/19/24 07:58 Temperature 36.6 C Pulse Rate 51 L 76 Respiratory Rate 16 Blood Pressure 153/55 H Pulse Oximetry 100 Oxygen Delivery Room Air 06/19/24 08:09 Temperature Pulse Rate 62 Respiratory Rate Blood Pressure Pulse Oximetry Oxygen Delivery Intake/Output Intake/Output: Intake & Output 06/16/24 06/17/24 06/18/24 06/19/24 23:59 23:59 23:59 23:59 Intake Total 8.4 1242.7 1090 670 Output Total 1050 2150 1200 Balance 8.4 192.7 -1060 -530 Meds/Results Medications: Active Medications Generic Name Dose Route Start Last Admin Trade Name Freq PRN Reason Stop Dose Admin Acetaminophen 650 mg 06/16/24 22:04 Acetaminophen 325 Mg Tablet PO Q4H PRN Mild Pain (1-3) or Fever Hydrocodone Bitart/Acetaminophen 1 tab 06/16/24 22:04 Hydrocodone/Acetaminophen (*Crx) 5-325 Mg Tablet PO Q4H PRN Pain Rated 4-6 Apixaban 5 mg 06/17/24 09:00 06/19/24 08:10 Apixaban 5 Mg Tablet PO 5 mg Q12HR AYE Administration Docusate Sodium 100 mg 06/18/24 14:02 Docusate Sodium 10
--- NOTE | 2024-06-19 13:21 | PM.IMPN ---
Progress Note: A&P Assessment and Plan (1) Atrial fibrillation with RVR: Code(s): I48.91 - Unspecified atrial fibrillation Status: Acute (2) Chronic GERD: Code(s): K21.9 - Gastro-esophageal reflux disease without esophagitis Status: Chronic (3) Mixed hyperlipidemia: Code(s): E78.2 - Mixed hyperlipidemia Status: Chronic (4) Essential (primary) hypertension: Code(s): I10 - Essential (primary) hypertension Status: Chronic (5) Chronic kidney disease, stage 3 (moderate): Qualifiers: Chronic kidney disease stage 3 subtype: unspecified whether 3a or 3b Qualified Code(s): N18.30 - Chronic kidney disease, stage 3 unspecified Code(s): N18.3 - Chronic kidney disease, stage 3 (moderate) Status: Chronic Plan HPI - This is a an 89-year-old female who presents to the ED with elevated heart rate and blood pressure. She has a history of AFib. On metoprolol and Eliquis. She has been compliant with his medications. At home her blood pressure was elevated to 180s over 130s and felt like heart was racing. She has been also feeling exhausted. Mildly dizzy and mild blurriness of the vision. Mild chest heaviness or tightness and hence presented to the ED. ED - In the ER vitals showed tachycardia in 120s blood pressure elevated 147/107. EKG showed AFib with RVR. Laboratory evaluation showed normal cbc. CMP was unremarkable. Troponin was negative. BNP was 4580. LFTs were normal. TSH normal at 1.080. Chest x-ray showed mild scarring at right lung apex with cardiomegaly. Hosp Coarse - She was started on Cardizem drip in the ED which was switched to amiodarone which has now been discontinued. Rate was controlled since then. Cardiology consulted. Sotalol added and she converted to NSR. The dose decreased due to sinus bradycardia and jct rhythm. Apixaban continued. Increase activity. Colace prn. Watch WBC. Consider PTOT if needed. Was mildly symptomatic with bradycardia today. Discussed with Cardiology. Plan for decreasing the Sotalol dose to 40mg daily. Monitor on tele. Hypertension Hyperlipidemia Chronic GERD Proximal atrial fibrillation Code status full code Subjective Date/time seen: 06/19/24 13:21 Interval history: 89yo female with pAFib and HTN here for palpitations. Dizzy when up this morning to the chair. Lasted about 5 minutes and associated with nausea. no CP. had been up and walked to the BR. RN states HR dropped briefly into the 30's. Exam Narrative: AF 98.2 147/59 56 20 100% ra Gen - NARD Chest -few bibasilar rhonchi otherwise clear CV - avni, regular S1/S2. Telemetry showing sinus bradycardia but rate above 40 Abd - Soft, NT/ND, Positive BS Ext - non-pitting pedal edema Psych - Nml mood and affect Skin - Warm and dry Objective Data Vital Signs Vital Signs: Vital Signs - 24 hr 06/18/24 14:00 06/18/24 16:00 06/18/24 16:00 Temperature 98.4 F Pulse Rate 57 L 54 L 59 L Respiratory Rate 18 Blood Pressure 140/55 L Pulse Oximetry 97 Oxygen Delivery 06/18/24 16:00 06/18/24 18:00 06/18/24 19:35 Temperature 97.7 F Pulse Rate 61 55 L Respiratory Rate 18 Blood Pressure 137/59 L Pulse Oximetry 99 Oxygen Delivery Room Air 06/18/24 20:13 06/18/24 20:00 06/18/24 22:00 Temperature Pulse Rate 59 L 53 L 52 L Respiratory Rate Blood Pressure Pulse Oximetry Oxygen Delivery 06/18/24 23:25 06/19/24 00:00 06/19/24 02:00 Temperature 97.6 F Pulse Rate 49 L 58 L 55 L Respiratory Rate 18 Blood Pressure 155/83 H Pulse Oximetry 100 Oxygen Delivery 06/19/24 04:10 06/19/24 04:00 06/19/24 04:00 Temperature 98.6 F Pulse Rate 54 L 51 L Respiratory Rate 18 Blood Pressure 145/57 H Pulse Oximetry 98 Oxygen Delivery Room Air 06/19/24 06:00 06/19/24 07:52 06/19/24 07:58 Temperature 97.8 F Pulse Rate 51 L 76 Respiratory Rate 16 Blood Pressure
[2024-06-20] VITALS (11 sets, daily range): BP systolic 137–174; BP diastolic 54–69; PULSE 47–60; RESP 18–20; TEMP 36.7–36.8; O2SAT 98–100
[2024-06-20] MEDS: lisinopriL 20 MG TABLET PO (08:42)
[2024-06-20] MEDS: APIXABAN 5 MG TABLET PO (08:42)
[2024-06-20] MEDS: SIMVASTATIN 10 MG TABLET PO (08:42)
[2024-06-20] MEDS: SOTALOL HCL 40 MG TABLET PO (08:55)
--- NOTE | 2024-06-20 11:40 | ECG_ITS ---
Test Date: 2024-06-20 11:48:04 Measurements Intervals [place] Rate: 47 P: 80 WV: 196 QRS: -13 QRSD: 82 T: 33 QT: 451 QTc: 401 Interpretive Statements SINUS BRADYCARDIA WITH SINUS ARRHYTHMIA LOW QRS VOLTAGE IN PRECORDIAL LEADS [QRS DEFLECTION < 1.0 mV IN CHEST LEADS] MODERATE VOLTAGE CRITERIA FOR LVH, CONSIDER NORMAL VARIANT [MEETS CRITERIA IN ONE OF: R(aVL), S(V1), R(V5), R(V5/V6)+S(V1)] NONSPECIFIC T-WAVE ABNORMALITY ABNORMAL ECG Compared to ECG 06/18/2024 11:20:56 No significant changes Electronically Signed On 06-20-2024 12:39:05 CDT by Todd Hernandez M.D.
--- NOTE | 2024-06-20 13:48 | PM.PNCARD ---
Progress Note: A&P Assessment and Plan (1) Atrial fibrillation with RVR: Code(s): I48.91 - Unspecified atrial fibrillation Status: Acute Plan 89-year-old lady with: Paroxysmal atrial fibrillation she has converted to sinus rhythm and is taking a low dose of sotalol. Sotalol dose has been decreased to 40mg daily and she remains in sinus rhythm with stable bradycardia. QTc remains stable on follow up EKG this morning. Will continue with low dose sotalol 40mg daily and anticoagulation with Eliquis 5mg b.i.d. OK for discharge today from a cardiac perspective. Subjective Date/time seen: 06/20/24 13:48 Interval history: Follow-up visit in this 89-year-old lady with: Paroxysmal atrial fibrillation she had been treated with metoprolol but with suboptimal rhythm control. She has now been transitioned to sotalol and is maintaining sinus rhythm although she is rather bradycardic. She is tolerating this without any serious symptoms but it is of some concern that her heart rate ranges from the high 30s to low 50s. Patient is sleeping and resting comfortably upon awakening she is in good spirits and feels well Date of service 06/20/2024: She feels well this morning. Has been up out of bed ambulating about the room with no problems. She remains in sinus rhythm with stable and asymptomatic bradycardia. Review of Systems Constitutional: Constitutional: Reports lethargy Eyes: Eyes: Reports no additional eye complaints ENT: Reports system reviewed and no additional complaints, except as documented Cardiovascular: Cardiovascular: Reports palpitations and Reports dyspnea on exertion Respiratory: Respiratory: Reports dyspnea on exertion Gastrointestinal: Gastrointestinal: Reports no additional gastrointestinal complaints Genitourinary: Genitourinary: Reports no additional female genitourinary complaints Musculoskeletal: Musculoskeletal: Reports no additional musculoskeletal complaints Integumentary/Breasts: Skin/Breast: Reports system reviewed and no additional complaints, except as docu Neurologic: Reports system reviewed and no additional complaints, except as documented Endocrine: Endocrine: Reports no additional endocrine complaints and Reports palpitations Hematologic/Lymphatic: Hematologic/Lymphatic: Reports no additional hematologic/lymphatic complaints Allergic/Immunologic: Allergic/Immunologic: Reports no additional allergic/immunologic complaints Exam Const: General: comfortable and no acute distress Other: Pleasant elderly lady no distress HENMT: Mouth: Yes moist mucous membranes Eyes: Sclera: sclerae normal Neck: Neck: supple and no JVD Resp: Effort & Inspection: normal respiratory effort Auscultation: clear to auscultation bilaterally Cardio: Rate: bradycardic Rhythm: regular rhythm GI: Auscultation: normal bowel sounds Skin: General skin exam: normal color Neuro: Other: alert and oriented x3 Extrem: General: normal to inspection Other: no edema Objective Data Vital Signs Vital Signs: Vital Signs - 24 hr 06/19/24 14:00 06/19/24 16:00 06/19/24 16:00 Temperature Pulse Rate 54 L 54 L Respiratory Rate Blood Pressure Pulse Oximetry Oxygen Delivery Room Air 06/19/24 16:00 06/19/24 18:00 06/19/24 20:10 Temperature 36.5 C 36.7 C Pulse Rate 51 L 59 L 52 L Respiratory Rate 20 20 Blood Pressure 121/63 130/48 L Pulse Oximetry 98 98 Oxygen Delivery 06/19/24 20:00 06/19/24 20:00 06/19/24 23:27 Temperature 36.7 C Pulse Rate 53 L 54 L Respiratory Rate 20 Blood Pressure 142/66 H Pulse Oximetry 100 Oxygen Delivery Room Air 06/20/24 03:22 06/19/24 22:00 06/20/24 00:00 Temperature 36.7 C Pulse Rate 54 L 54 L 48 L Respiratory Rate 20 Blood Pressure 137/54 L Pulse Oximetry 98 Oxygen Delivery 06/20/24 00:00 06/20/24 02:00 06/20/24 04:00 Temperature Pulse Rate 50 L 55 L Respir
--- NOTE | 2024-06-20 14:30 | PM.DS ---
DS: Admitting Diagnosis Discharge Date 06/20/24 Admitting Diagnosis Palpitations DS: Discharge Diagnosis Discharge Diagnosis (1) Atrial fibrillation with RVR: Code(s): I48.91 - Unspecified atrial fibrillation Status: Acute (2) Chronic GERD: Code(s): K21.9 - Gastro-esophageal reflux disease without esophagitis Status: Chronic (3) Mixed hyperlipidemia: Code(s): E78.2 - Mixed hyperlipidemia Status: Chronic (4) Essential (primary) hypertension: Code(s): I10 - Essential (primary) hypertension Status: Chronic (5) Chronic kidney disease, stage 3 (moderate): Qualifiers: Chronic kidney disease stage 3 subtype: unspecified whether 3a or 3b Qualified Code(s): N18.30 - Chronic kidney disease, stage 3 unspecified Code(s): N18.3 - Chronic kidney disease, stage 3 (moderate) Status: Chronic DS: Summary Hospital Course Reason for hospitalization: 89yo female with pAFib and HTN here for palpitations. Please see H&P for details. Hospital Course: In the ER vitals showed tachycardia in 120s blood pressure elevated 147/107. EKG showed AFib with RVR. Laboratory evaluation showed normal cbc. CMP was unremarkable. Troponin was negative. BNP was 4580. LFTs were normal. TSH normal at 1.080. Chest x-ray showed mild scarring at right lung apex with cardiomegaly. She was started on Cardizem drip in the ED which was switched to amiodarone which was discontinued. Rate was controlled since then. Cardiology consulted. Sotalol added and she converted to NSR. The dose decreased due to sinus bradycardia and jct rhythm. Apixaban continued. She was up walking in the halls. She remained in sinus rhythm with stable bradycardia. QTc remained stable on follow up EKG this morning. She overall did well and was able to be discharged home on 06/20/24. Status at Discharge Cognitive/behavioral status at discharge: stable Time Spent with Patient Time attestation: Total time spent providing and/or coordinating discharge services: 32 minutes Time spent: Greater than 30 minutes Exam Narrative: AF 98.1 142/58 53 18 99% ra Gen - NARD Chest - CTA bilaterally, nml RR CV - bradycardic, regular S1/S2. Abd - Soft, NT/ND, Positive BS Ext - non-pitting pedal edema Psych - Nml mood and affect Skin - Warm and dry Discharge Plan Discharge Attending physician on discharge: Bryce Min Consulting providers: Todd Hernandez Discharging Clinician: Bryce Min Anticipated Discharge Date/Time: 06/20/24 14:37 Patient Disposition: Home, Self-Care Activity: as tolerated Diet: heart healthy Discharge Instructions: Take precautions to avoid falls. Rise slowly from a lying or sitting position. Pause before standing or walking. Contact your doctor or call 911 and come to the Emergency Room if you have palpitations, lightheadedness with standing or other worrisome symptoms. Avoid NSAIDs (ibuprofen, naproxen, Aleve). Tylenol is safe to take. Follow-up with your primary care provider in 1-2 weeks. Please call for appointment. Follow-up with Commissioned Defence [employer] Officer in 3-4 weeks. Please call for an appointment. Thank you for using [facility] for your health care needs. Patient Instructions: Antibiotic Form, Sotalol (By mouth), Apixaban (By mouth), Pain Management (DC) Stand Alone Forms: General Discharge Information Follow-up/Referrals: Keon Sanchez MD [Physician] - (OUR OFFICE WILL CALL YOU WITH APPOINTMENT INFORMATION) Todd Hernandez MD [Physician] - Call for Appointment Sheela Stephen DO [Primary Care Provider] - Call for Appointment Discharge Medications: New sotalol 80 mg tablet 40 mg PO DAILY Qty: 30 1RF Continued ascorbic acid (vitamin C) 1,000 mg tablet 1 g PO DAILY Eliquis 5 mg tablet 5 mg PO Q12H vitamin D3-vitamin K2 125 mcg (5,000 unit)-100 mcg Capsule 1 cap PO ALEX
== END 2024-06-20 16:05 | disposition home or self-care (01) | DRG 310 ==
LOC: ANHED 22:16 → ANHIMU 22:54
PROVIDERS: Internal Medicine; Physician Assistant; Admitting Provider Internal Medicine; Emergency Provider Emergency Medicine; PCP Family Medicine; Visit Provider Internal Medicine
DX: I48.0 Paroxysmal atrial fibrillation (principal); K21.9 Gastro-esophageal reflux disease without esophagitis; E78.2 Mixed hyperlipidemia; I12.9 Hypertensive chronic kidney disease with stage 1 through stage 4 chronic kidney disease, or unspecified chronic kidney disease; N18.30 Chronic kidney disease, stage 3 unspecified; Z85.828 Personal history of other malignant neoplasm of skin; Z86.16 Personal history of COVID-19
CPT/HCPCS: 36415; 71046; 80048; 80053; 83735; 83880; 84443; 84484; 85025; 85610; 85730; 93005; 96365; 96366; 96367; 99285; A9270; G0378; J0282

== ENCOUNTER 2024-07-16 08:48 | Outpatient (CLI) | payer MEDICARE, SELFPAY ==
[2024-07-16 21:16] LABS: Alanine Aminotransferase 24 U/L (6-35); Albumin Level 3.8 g/dL (3.5-5.1); Alkaline Phosphatase 60 U/L (38-126); Anion Gap 7 mmol/L (4-12); Aspartate Amino Transferase 38 U/L (14-36); Bilirubin,Total 0.7 mg/dL (0.2-1.3); Blood Urea Nitrogen 25 mg/dL (7-17); Calcium 9.7 mg/dL (8.4-10.2); Carbon Dioxide 27 mmol/L (22-30); Chloride 105 mmol/L (98-107); Cholesterol 180 mg/dL (0-200); Estimated Glomerular Filt Rate 59; Glucose 93 mg/dL (65-110); HDL Direct 49 mg/dL; Potassium 4.1 mmol/L (3.4-5.0); Sodium 139 mmol/L (137-145); Triglycerides 108 mg/dL (<150)
[2024-07-16 21:31] LABS: LDL Cholesterol Direct 101 mg/dL
[2024-07-16 21:46] LABS: Creatinine Urine 109.7 mg/dL
[2024-07-16 21:50] LABS: MALB Creatinine Ratio 30.3 mg/g (0-30); Microalbumin Urine Random 33.2 mg/L (0-16.7)
== END 2024-07-16 08:49 | disposition home or self-care (01) ==
PROVIDERS: PCP Family Medicine; Visit Provider Nurse Practitioner
DX: E78.2 Mixed hyperlipidemia (principal); N18.30 Chronic kidney disease, stage 3 unspecified
CPT/HCPCS: 36415; 80053; 80061; 82043

== ENCOUNTER 2024-12-02 09:53 | Outpatient (CLI) | payer MEDICARE, SELFPAY ==
--- OUTSIDE RECORDS SUMMARY | 2024-12-02 11:19 | XMS_ITS | Clinical Summary ---
Author Organization [facility] Address [address] [place] [address] Care Team Providers Care Wheel Molder Name Role Phone Chuy Tadeo MD Primary Care Provider [phone] Source Comments [facility],non-owned Affiliates and Associated Physician Practices is amultiple site organization consisting of ambulatory clinics and hospital sitesin [place], [place], [place] and [place]. This disclosure is being madepursuant to the Care Everywhere program and may not contain all information available regarding this patient. Last updated 18.[facility] [employer] Social History Tobacco Use Types Packs/Day Years Used Date Smoking Tobacco: Never Assessed Sex and Gender Information Value Date Recorded Sex Assigned at Not on file Gender Identity Not on file Sexual Orientation Not on file Plan of Treatment Health Maintenance Due Date Last Done Comments BONE DENSITY TESTING 1935 MEDICARE AWV 12 MONTHS 1935 DTAP/TDAP/TD VACCINES (1 - Tdap) 1956 PNEUMOCOCCAL VACCINE 50+ (1 of 1 - PCV) 1987 ZOSTER VACCINE (1 of 2) 1987 Respiratory Syncytial Virus (RSV) Vaccine Pt: or over 60 yrs (1 - 1-dose 75+ series) 2012 COVID-19 VACCINE ( - 2023-2 5 season) 2024 INFLUENZA VACCINE (#1) 2024 DEPRESSION SCREENING 09/10/2024 HEPATITIS B VACCINE Aged Out No longe r eligible based on patient's age to complete this topic HIB VACCINE Aged Out No longer eligi ble based on patient's age to complete this topic HPV VACCINE Aged Out No longer eligi ble based on patient's age to complete this topic MENINGOCOCCAL (Group B) VACC INE SHARED DECISION-MAKING Aged Out No longer eligibl e based on patient's age to complete this topic MENINGOCOCCAL GROUPS A/C/Y/W VACCINE Aged Out No longer eligible b ased on patient's age to complete this topic Care Teams Wheel Molder Relationship Specialty Start Date End Date Chuy Tadeo MD [address] [place] [id number] PCP - General 01/24/18
--- OUTSIDE RECORDS SUMMARY | 2024-12-02 11:19 | XMS_ITS | Clinical Summary ---
Author Organization [facility] Address [address] [place] [address] Care Team Providers Care Power Checker Name Role Phone Sheela Stephen DO Primary Care Provider [phone] Allergies Active Allergy Reactions Criticality Noted Date Comments Ovglgirt-Rggdktfmky-Bwcqwnoic Blisters High 2019 Penicillin G Rash Medium 07/17/2020 Bacitracin-Polymyxin B Blisters High 08/02/2020 Medications multivitamin capsuleIndicati ons:Vitamin Deficiency Prevention Take 1 capsule by mouth every morning Patient melts vitamin and put in liquid Active acetaminophen (TYLENOL) 32 mg/mL Take 20.3 mL (650 mg total) by mouth every 4 (four) hours as needed for pain This medication can be found over the counter, please follow the instructions listed on the packaging. 0 Active vit D3-vit N-owfpvodtg-xmw s [phone] htrw-ose-oe-mg tablet Take by mouth Active simvastatin (ZOCOR) 10 mg tablet Take 1 tablet (10 mg total) by mouth daily 3 Active lisinopriL (PRINIVIL,ZESTR IL) 20 mg tablet Take 1 tablet (20 mg total) by mouth 2 (two) times a day 4 Active apixaban (ELIQUIS) 2.5 mg tablet Take 1 tablet (2.5 mg total) by mouth 2 (two) times a day 60 tablet 11 4 Active sotaloL (BETAPACE) 80 mg tablet Take 0.5 tablets (40 mg total) by mouth daily 90 tablet 1 5 Active amLODIPine (NORVASC) 2.5 mg tablet Take 1 tablet (2.5 mg total) by mouth daily 90 tablet 3 5 10/20/19 26 Active Active Problems Problem Noted Date Diagnosed Date Dizziness 03/21/2021 Paroxysmal atrial fibrillation 08/08/2020 Overview (08/08/2020): Started on POD2 Assessment & Plan (08/08/2020 12:45 PM WHOLESALE LOAN PROCESSOR): - Got Amio 150mg IV x2, started on Amio gtt - Converted to NSR during Amio gtt, will allow to finish tonight and then start metop 25mg PO BID tomorrow Hiatal hernia 07/23/2020 Overview (07/23/2020): Added automatically from request for surgery [id number] Assessment & Plan (08/08/2020 12:43 PM WHOLESALE LOAN PROCESSOR): - Rivera out POD 1 and voided - Advanced to FLD - Pain control - Jorge Alberto zofran, PRN compazine, avoid reglan - Swallow test POD 1 -> Passed, no leaks 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 Dysphagia Kidney cysts Skin disorder Skin cancer Pneumonia Covid-19 Family History Medical History Relation Name Comments Atrial fibrillation Brother 1 Diabetes Brother 1 Atrial fibrillation Brother 2 Aneurysm Brother 3 Cancer Father Heart disease Father Stroke Maternal Grandmother Dementia Mother delayed emergence Sister 1 Breast cancer Sister 2 Relation Name Status Comments Brother 1 Alive Brother 2 Alive Brother 3 (Age 68) Brother 4 Alive Father (Age 60) Maternal Grandmother Mother (Age 89) Sister 1 Alive Sister 2 (Age 48) Social History Tobacco Use Types Packs/Day Years Used Date Smoking Tobacco: Never Smokeless Tobacco: Never Tobacco Cessation:Counseling Given: Not Answered Alcohol Use Standard Drinks/Week Comments Not Currently 0 (1 standard drink = 0.6 oz pur e alcohol) Comments No Sex and Gender Information Value Date Recorded Sex Assigned at Not on file Legal Sex Female 10:52 PM WHOLESALE LOAN PROCESSOR Gender Identity Not on file Sexual Orientation Not on file Obstetrics History Last Filed Vital Signs Vital Sign Reading Time Taken Comments Blood Pressure 178/84 10/20/2024 9:38 AM WHOLESALE LOAN PROCESSOR Pulse 96 10/20/2024 9:38 AM WHOLESALE LOAN PROCESSOR Temperature 36.3 C (97.3 F) 12/08/2020 8:07 AM CDT Respiratory Rate 16 08/09/2020 8:58 AM WHOLESALE LOAN PROCESSOR Oxygen Saturation 98% 07/21/2024 11:34 AM WHOLESALE LOAN PROCESSOR Inhaled Oxygen Concentration - - Weight 66 kg (145 lb 9.6 oz) 10/20/2024 9:38 AM WHOLESALE LOAN PROCESSOR Height 154.9 cm (5' 1 ) 10/20/2024 9:38 AM WHOLESALE LOAN PROCESSOR Body Mass Index 27.51 10/20/2024 9:38 AM WHOLESALE LOAN PROCESSOR Plan of Treatment Health Maintenance Due Date Last Done Comments Depression Screening 1935 DTaP/Tdap/Td Vaccine (1 - Tdap) 1948 Hepatitis B Screening 1955 Pneumococcal vaccine 65+ (1 of 1 - PCV) 1987 Zoster Vaccine (1 of 2) 1987 Well Visit 65+ 2002 Fall Risk Assessment 08/08/2021 08/08/2020 Influenza Vaccine (#1) 2024 05/12/2020, 2017 Medical Devices Implanted Type Area Water/Wastewater Engineer Device Identifier Shelf Expiration Date Model / Serial / Lot Age [employer] [id number] Surgisis Biodesign 10x7cm 4 Sheet Freeze Dried Graft Soft Tissue - [id number] Implanted:Qty : 1 on 08/06/2020 by Minesh Gardiner MD at [facility] Mesh N/A: Abdomen Age [employer] [id number] 07/19/2021 [id number] / / [id number] Description:Implanted t Insurance MEDICARE MEDICARE MEDICARE Advance Directives For more information, please contact: [phone] * Full Code (Latest Code Status on File) Date Activated Date Inactivated Comments 08/06/2020 3:11 PM 08/09/2020 7:07 PM * Full Code Date Activated Date Inactivated Comments 07/17/2020 2:32 AM 07/19/2020 4:42 PM Care Teams Power Checker Relationship Specialty Start Date End Date Sheela Stephen DO PCP - General Family Medicine 07/19/20
--- OUTSIDE RECORDS SUMMARY | 2024-12-02 11:19 | XMS_ITS | Referral Summary ---
Author Organization [facility] Address [address] [place] [address] Care Team Providers Care Columnist Name Role Phone Sheela Stephen DO Primary Care Provider [phone] Encounters Date Type Department Care Team Description 10/20/2024 9:45 AM CONSUMER MARKETING SPECIALIST Office Visit [facility] Cardiology [address] [place] [address] Keon Sanchez MD Paroxysmal atrial fibrillation (HCC) (Primary Dx); Primary hypertension; Mixed hyperlipidemia 10/10/2024 Telephone [facility] Cardiology [address] [place] [address] Keon Sanchez MD 09/24/2024 Telephone [facility] Cardiology [address] [facility] 8th [place] [address] [place] [address] Collin Boykin MD from Last 3 Months Allergies Active Allergy Reactions Criticality Noted Date Comments Iukctili-Uxzhkrfwmq-Axscdglvp Blisters High 2019 Penicillin G Rash Medium [...] on the packaging. 0 Active vit D3-vit J-xkrxsiynb-zug s [phone] qvuo-drf-os-mg tablet Take by mouth Active simvastatin (ZOCOR) [...] POD2 Assessment & Plan (08/08/2020 12:45 PM CONSUMER MARKETING SPECIALIST): - Got Amio 150mg IV x2, started on Amio gtt - Converted to NSR during Amio gtt, will allow to finish tonight and then start metop 25mg PO BID tomorrow Hiatal hernia 07/23/2020 Overview (07/23/2020): Added automatically from request for surgery [id number] Assessment & Plan (08/08/2020 12:43 PM CONSUMER MARKETING SPECIALIST): - Rivera out POD 1 and voided - Advanced to FLD - Pain control - Jorge Alberto zofran, PRN compazine, avoid reglan - Swallow test POD 1 -> Passed, no leaks 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 HTN (hypertension) 07/17/2020 HLD (hyperlipidemia) 07/17/2020 COVID-19 Social History Tobacco Use Types Packs/Day Years Used Date Smoking Tobacco: Never Smokeless Tobacco: Never Tobacco Cessation:Counseling Given: Not Answered Alcohol Use Standard Drinks/Week Comments Not Currently 0 (1 standard drink = 0.6 oz pur e alcohol) Comments No Sex and Gender Information Value Date Recorded Sex Assigned at Not on file Legal Sex Female 10:52 PM CONSUMER MARKETING SPECIALIST Gender Identity Not on file Sexual Orientation Not on file Last Filed Vital Signs Vital Sign Reading Time Taken Comments Blood Pressure 178/84 10/20/2024 9:38 AM CONSUMER MARKETING SPECIALIST Pulse 96 10/20/2024 9:38 AM CONSUMER MARKETING SPECIALIST Temperature 36.3 C (97.3 F) 12/08/2020 8:07 AM CDT Respiratory Rate 16 08/09/2020 8:58 AM CONSUMER MARKETING SPECIALIST Oxygen Saturation 98% 07/21/2024 11:34 AM CONSUMER MARKETING SPECIALIST Inhaled Oxygen Concentration - - Weight 66 kg (145 lb 9.6 oz) 10/20/2024 9:38 AM CONSUMER MARKETING SPECIALIST Height 154.9 cm (5' 1 ) 10/20/2024 9:38 AM CONSUMER MARKETING SPECIALIST Body Mass Index 27.51 10/20/2024 9:38 AM CONSUMER MARKETING SPECIALIST Plan of Treatment Not on file Medical Devices Implanted Type Area Phlebotomist Prn Device Identifier Shelf Expiration Date Model / Serial / Lot [employer] [id number] S[employer] Biodesign 10x7cm 4 Sheet Freeze Dried Graft Soft Tissue - [id number] Implanted:Qty : 1 on 08/06/2020 by Cele Luis, Minesh Kirby MD at [facility] Mesh N/A: Abdomen Next 1 [employer] [id number] 07/19/2021 [id number] / / [id number] Description:Implanted t Insurance MEDICARE MEDICARE [facility] Address: [address] [place] [address] MEDICARE Advance Directives For more information, please contact: [phone] * Full Code (Latest Code Status on File) Date Activated Date Inactivated Comments 08/06/2020 3:11 PM 08/09/2020 7:07 PM * Full Code Date Activated Date Inactivated Comments 07/17/2020 2:32 AM 07/19/2020 4:42 PM Care Teams Columnist Relationship Specialty Start Date End Date Sheela Stephen DO PCP - General Family Medicine 07/19/20
--- OUTSIDE RECORDS SUMMARY | 2024-12-02 11:19 | XMS_ITS | Encounter Summary ---
Author Organization [facility] Address [address] [place] [address] Care Team Providers Care Accounts Payable Analyst Name Role Phone Chuy Tadeo MD Primary Care Provider [phone] Encounter Details Date Type Department Care Team (Late st Contact Info) Description 01/24/2018 Lab Requisition [facility] [address] [facility] [place] [id number] Evan Velasquez MD [address] [place] [address] Social History Tobacco Use Types Packs/Day Years Used Date Smoking Tobacco: Never Assessed Sex and Gender Information Value Date Recorded Sex Assigned at Not on file Gender Identity Not on file Sexual Orientation Not on file documented as of this encounter Plan of Treatment Not on file documented as of this encounter Procedures Procedure Name Priority Date/Time Associated Diagnosis Comments DERMATOPATHOLOGY Routine 01/23/2018 12:0 0 AM CDT documented in this encounter Results * DERMATOPATHOLOGY (01/23/2018 12:00 AM CDT) Case Report Dermatopathology Report Case: [id number] Authorizing Provider: Evan Velasquez MD Collected: 01/23/2018 12:00 AM Pathologist: Whitney Walker MD Received: 01/24/2018 12:21 PM Specimens: A) - Skin, left of midline forehead - upper B) - Skin, above right lateral brow C) - Skin, right superior forehead D) - Skin, right mid clavicle 8 5:05 PM CDT DERMATOPATHOLOGY LABORATORY Final Diagnosis Specimen A. SKIN, left of midline forehead - upper: BASAL CELL CARCINOMA, NODULAR TYPE (C44.319) PRESENT AT MARGIN Specimen B. 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 Check margins. 8 5:05 PM [facility] [place] DERMATOPATHOLOGY LABORATORY Gross Description Specimen A: Received is one formalin filled container labeled with the patient's name and designated left of midline forehead - upper. The specimen consists of a shave biopsy measuring 9o7y2pc, the margin is inked green. Jar 0. Specimen B: Received is one formalin filled container labeled with the patient's name and designated above right lateral brow. The specimen consists of a shave biopsy measuring 5l5q1hv, the margin is inked green. Jar 0. Specimen C: Received is one formalin filled container labeled with the patient's name and designated right superior forehead. The specimen consists of a shave biopsy measuring 8m7o9ej, the margin is inked green. Jar 0. Specimen D: Received is one formalin filled container labeled with the patient's name and designated right mid clavicle. The specimen consists of a shave biopsy measuring 4x5c0tx, the margin is inked green. Jar 0. 8 5:05 PM [facility] [place] DERMATOPATHOLOGY LABORATORY Microscopic Description Specimen A. SKIN, left of midline forehead - upper: Within the dermis there are aggregates of basaloid cells with a high nuclear to cytoplasmic ratio and peripheral palisading. This lesion is present at the margin of the specimen. Specimen B. SKIN, above right lateral brow: The epidermis shows parakeratosis, full thickness disorderly maturation of keratinocytes, mitoses at different levels, and dyskeratotic cells. This lesion is present at the margin of the specimen. Specimen C. SKIN, right superior forehead: The epidermis shows parakeratosis, full thickness disorderly maturation of keratinocytes, mitoses at different levels, and dyskeratotic cells. This lesion is present at the margin of the specimen. Specimen D. SKIN, right mid clavicle: Attached to the undersurface of the epidermis, there are small aggregates of basaloid cells with a high nuclear to cytoplasmic ratio and peripheral palisading. This lesion is present at the margin of the specimen. 8 5:05 PM CDT DERMATOPATHOLOGY LABORATORY Disclaimer An external and internal positive and negative controls are appropriate for the histochemical, immunohistochemical and immunofluorescence stain(s) in this case (if any), except where stated explicitly. The performance characteristics of the stain(s) cited in this report were developed and its performance characteristic determined by the Dermatopathology Laboratory at [facility]. These tests need not be, and therefore are not, approved by the [place] Food and Drug Administration. The tests are used for clinical purposes. Billing Codes Specimen Charges Stain Charges 24275 30512 [id number] 13596 1 1 1 1 8 5:05 PM CDT DERMATOPATHOLOGY LABORATORY Embedded Images 8 5:05 PM CDT DERMATOPATHOLOGY LABORATORY Pathology/Cytology TISSUE SPECIMEN FROM SKIN / Unknown 01/23/2018 01/24/2018 12:21 PM CDT Miscellaneous samples (specimen) TISSUE SPECIMEN FROM SKIN / Unknown 01/23/2018 01/24/2018 12:21 PM CDT Miscellaneous samples (specimen) TISSUE SPECIMEN FROM SKIN / Unknown 01/23/2018 01/24/2018 12:21 PM CDT Miscellaneous samples (specimen) TISSUE SPECIMEN FROM SKIN / Unknown 01/23/2018 01/24/2018 12:21 PM CDT Evan Velasquez MD LAB - PATHOLOGY/CYTO LOGY ORDERABLES DERMATOPATHOLOGY LABORATORY [facility] - Department of Dermatology [address] [place] [address], [facility] [phone] documented in this encounter Visit Diagnoses Not on filedocumented in this encounter Care Teams Accounts Payable Analyst Relationship Specialty Start Date End Date Chuy Tadeo MD [address] [place] [id number] PCP - General 01/24/18 documented as of this encounter
[2024-12-02 19:56] LABS: Alanine Aminotransferase 28 U/L (6-35); Alkaline Phosphatase 66 U/L (38-126); Anion Gap 8 mmol/L (4-12); Aspartate Amino Transferase 56 U/L (14-36); Bilirubin,Total 0.6 mg/dL (0.2-1.3); Blood Urea Nitrogen 17 mg/dL (7-17); Calcium 9.7 mg/dL (8.4-10.2); Carbon Dioxide 25 mmol/L (22-30); Chloride 107 mmol/L (98-107); Cholesterol 171 mg/dL (0-200); Estimated Glomerular Filt Rate > 60; Glucose 87 mg/dL (65-110); HDL Direct 47 mg/dL; Potassium 4.5 mmol/L (3.4-5.0); Sodium 140 mmol/L (137-145); Triglycerides 97 mg/dL (<150)
[2024-12-02 20:11] LABS: LDL Cholesterol Direct 84 mg/dL
[2024-12-02 20:14] LABS: Hematocrit 42.3 % (37.0-47.0); Hemoglobin 13.6 g/dL (12.0-15.0); Mean Corpuscular HGB Conc 32.2 g/dl (32-36); Mean Corpuscular Hemoglobin 31.9 pg (26-34); Mean Corpuscular Volume 99.1 fl (80-100); Mean Platelet Volume 10.9 fl (7.4-10.4); Platelet Count Result 203 k/mm3 (150-375); Red Blood Count 4.27 M/mm3 (4.2-5.4); Red Cell Distribution Width 12.6 % (11.5-14.5); White Blood Count 5.6 K/mm3 (4.5-10.0)
== END 2024-12-02 09:54 | disposition home or self-care (01) ==
LOC: ANHGOSHLAB 09:54
PROVIDERS: PCP Family Medicine; Visit Provider Family Medicine
DX: E78.2 Mixed hyperlipidemia (principal); E66.3 Overweight; I12.9 Hypertensive chronic kidney disease with stage 1 through stage 4 chronic kidney disease, or unspecified chronic kidney disease; N18.30 Chronic kidney disease, stage 3 unspecified
CPT/HCPCS: 36415; 80053; 80061; 84443; 85027